=== PATIENT | male | born 1950 | race African-American/Black ===

== ENCOUNTER 2019-02-12 11:29 | Emergency (ER) | payer OTHER ==
[2019-02-12] MEDS ORDERED: Dexamethasone 10 MG/ML VIAL ONE (12:58)
[2019-02-12 13:06] LABS: #Basophils 0.1 thou/uL (0.0-0.2); #Eosinphils 0.4 thou/uL (0.0-0.7); #Lymphocytes 1.9 thou/uL (1.20-3.40); #Neutrophils 7.1 thou/uL (1.40-6.50); %Basophils 0.8 % (0.0-1.0); %Eosinophils 3.9 % (0.0-10.0); %Lymphocytes 18.1 % (21.0-51.0); %Monocytes 9.2 % (0.0-10.0); Hemoglobin 14.7 g/dL (14.0-18.0); Mean Corpuscular HGB CONC 33.5 g/dL (32.0-36.0); Mean Corpuscular Hemoglobin 30.4 pg (27.0-31.0); Mean Corpuscular Volume 90.8 fL (78.0-98.0); Mean Platelet Volume 6.6 fL (7.4-10.4); Platelet Count 424 thou/uL (130-400); RBC Distribution Width 14.1 % (11.5-14.5); Red Blood Cell (RBC) Count 4.82 mill/uL (4.70-6.10); White Blood Cell (WBC) Count 10.5 thou/uL (4.8-10.8)
[2019-02-12 13:24] LABS: Anion Gap 10 mmol/L (10-20); BUN (Urea Nitrogen) 8 mg/dL (8.4-25.7); Calc. Creatinine Clearance 0 mL/min (70-130); Calcium 9.5 mg/dL (7.8-10.44); Carbon Dioxide 27 mmol/L (23-31); Chloride 102 mmol/L (98-107); Estimated GFR-MDRD 68; Glucose 81 mg/dL (80-115); Sodium 135 mmol/L (136-145)
--- NOTE | 2019-02-12 13:32 | ULT ---
EXAM: Left lower extremity venous duplex ultrasound with color and spectral Doppler imaging: HISTORY: Left lower extremity edema COMPARISON: None FINDINGS: Exam performed from the groin to the ankle including the visualized greater saphenous, common femoral , superficial femoral, profunda femoral, popliteal, trifurcation, and posterior tibial veins. There is phasic flow with normal compressibility and normal augmentation at all examined levels. No evidence for intraluminal thrombus. IMPRESSION: No evidence for deep venous thrombosis.
== END 2019-02-12 13:45 | disposition home or self-care (01) ==
LOC: ERS 11:29
DX: L30.9 Dermatitis, unspecified (principal); R60.9 Edema, unspecified; F17.210 Nicotine dependence, cigarettes, uncomplicated; J45.909 Unspecified asthma, uncomplicated; I10 Essential (primary) hypertension; K50.90 Crohn's disease, unspecified, without complications; F41.9 Anxiety disorder, unspecified
CPT/HCPCS: 36415; 80048; 83880; 85025; 96372; J1100

== ENCOUNTER 2020-05-16 10:41 | Inpatient (IN) | payer MEDICARE ==
[2020-05-16 11:33] LABS: #Basophils 0.2 thou/uL (0.0-0.2); #Eosinphils 2.2 thou/uL (0.0-0.7); #Lymphocytes 3.4 thou/uL (1.20-3.40); #Monocytes 1.6 thou/uL (0.11-0.59); #Neutrophils 10.5 thou/uL (1.40-6.50); %Eosinophils 12.1 % (0.0-10.0); %Monocytes 8.8 % (0.0-10.0); %Neutrophils 59.1 % (42.0-75.0); Hemoglobin 12.5 g/dL (14.0-18.0); Mean Corpuscular HGB CONC 32.3 g/dL (32.0-36.0); Mean Platelet Volume 6.2 fL (7.4-10.4); Platelet Count 593 thou/uL (130-400); RBC Distribution Width 13.6 % (11.5-14.5); Red Blood Cell (RBC) Count 4.29 mill/uL (4.70-6.10); White Blood Cell (WBC) Count 17.8 thou/uL (4.8-10.8)
[2020-05-16] MEDS ORDERED: Cefepime 1 GM VIAL ONE ×2 (11:38→13:44)
--- NOTE | 2020-05-16 11:41 | RAD ---
LEFT FOOT 3 VIEWS: HISTORY: Left foot pain. FINDINGS: Small plantar spur from the calcaneus. The tarsals are otherwise unremarkable. Mild DJD at the 1st MTP joint. The metatarsals and MTP joins are otherwise unremarkable. IP joints and phalanges unremarkable. No lytic or destructive process. No fracture. IMPRESSION: No acute osseous abnormality. POS: AGW
[2020-05-16 11:54] LABS: ALT (SGPT) 11 U/L (8-55); AST (SGOT) 22 U/L (5-34); Albumin 2.3 g/dL (3.4-4.8); Alkaline Phosphatase 169 U/L (40-110); Anion Gap 14 mmol/L (10-20); BUN (Urea Nitrogen) 7 mg/dL (8.4-25.7); Bilirubin, Total 0.4 mg/dL (0.2-1.2); Calc. Creatinine Clearance 0 mL/min (70-130); Calcium 7.9 mg/dL (7.8-10.44); Carbon Dioxide 24 mmol/L (23-31); Chloride 105 mmol/L (98-107); Globulin 3.6 g/dL (2.4-3.5); Glucose 80 mg/dL (80-115); Potassium 3.8 mmol/L (3.5-5.1); Protein, Total 5.9 g/dL (5.8-8.1); Sodium 139 mmol/L (136-145)
--- NOTE | 2020-05-16 12:18 | ULT ---
RIGHT LOWER EXTREMITY VENOUS ULTRASOUND: COMPARISON: None. HISTORY: Lower extremity pain and edema. TECHNIQUE: Multiplanar, ventura scale, and color Doppler images were obtained in a right lower extremity venous ult rasound. Spectral Analysis of the Doppler waveforms was performed. FINDINGS: The right common femoral vein, profunda femoral vein, superficial femoral vein, and popliteal vein ar e normal in appearance without visible thrombus. These vessels demonstrate normal compression, flow, and augmentation. The posterior tibial vein and greater saphenous vein are also patent. IMPRESSION: No evidence of deep vein thrombosis. POS: [id number]
--- NOTE | 2020-05-16 12:21 | ULT ---
EXAM: US Arterial Doppler Lower Ext DATE: 05/16/2020 11:25 AM INDICATION: History of diabetes COMPARISON: None. FINDING: Doppler arterial evaluation of the left lower extremity demonstrates a biphasic waveform at the level of common femoral artery and monophasic waveform from the superficial femoral artery through the level of the dorsalis pedis artery. There is an antegrade monophasic waveform within the deep femoral artery IMPRESSION:Diffuse severe atherosclerotic disease of the arterial structures of the left lower extrem ity. No visible hemodynamically significant stenosis is demonstrated. There is antegrade monophasic waveforms from the level left superficial femoral artery through the level of the left dorsalis pedis artery.
[2020-05-16] MEDS ORDERED: Senokot S 8.6-50 MG TAB PO PRN (14:53)
[2020-05-16] MEDS ORDERED: Acetaminophen 325 MG TAB PO PRN (14:53)
[2020-05-16] MEDS: Nicotine 14 MG PATCH TD SCH (17:46)
[2020-05-16] MEDS: Piperacillin/Tazobactam 3.375 GM in Sodium Chloride 0.9% 100 ML IVPB SCH ×2 (17:46→22:40)
[2020-05-16] MEDS: Sodium Chloride 0.9% 1,000 ML IV SCH (17:46)
--- NOTE | 2020-05-16 20:51 | HP ---
REASON FOR ADMISSION: Left leg pain and ulcerations. HISTORY OF PRESENT ILLNESS: This is a very pleasant 69-year-old male gentleman, who usually follows up with the [place] for his medical needs with extensive past medical history of psoriasis, benign essential hypertension, and hyperlipidemia, presents to the emergency room today with complaints of left lower extremity pain of his toes, which seemed to be having wet gangrene at this point of time, though the patient's bilateral legs are warm. The patient does not have any fever. He is alert, oriented, and according to him, the current situation has been running for the last 4 to 5 months. He showed up at his primary care physician's office in [place], who advised him to have a Dermatology evaluation. The patient's current Dermatology evaluation is on June 18. Unfortunately could not wait for the same and presented to the ER as he was feeling weak in the recent past. The patient does have psoriasis, for which he has been taking adalimumab every 14 days. Except for complaints of sinus tachycardia and pain in his lower extremity. No other complaints of chest pain, shortness of breath, abdominal pain, fever, rigors, chills, nausea, vomiting, diaphoresis, blurring of vision, tingling, numbness, burning micturition, constipation, claudication, anxiety, depression, hematuria, hematochezia, cough, expectoration, syncope, seizures, PND, or orthopnea has been noted at this point of time. In the emergency room, the patient was found to have a heart rate of 120 with sinus tachycardia without any complaints of fever. The patient also was evaluated in the recent past for HIV and hepatitis, which were negative. SOCIAL HISTORY: The patient smokes a pack of cigarettes a day for the last 50 years. Does not abuse alcohol or recreational drugs. FAMILY HISTORY: Strong family history of coronary artery disease and hypertension without any premature onset problems. PAST SURGICAL HISTORY: History of punch biopsies for his psoriatic lesions. REVIEW OF SYSTEMS: Except as documented, all systems reviewed and negative. MEDICATIONS: At home; 1. Tylenol 325 mg q.8 hours. 2. Adalimumab 40 mg subcutaneous every 14 days. 3. Albuterol 90 mcg two puffs every 4 hours. 4. Aspirin 81 mg daily. 5. Atorvastatin 80 mg daily. 6. Budesonide inhalation 2 puffs twice daily. 7. Calcium 500 mg/vitamin D 200 units daily. 8. Clobetasol propionate 0.05% ointment for external application. 9. Cyanocobalamin 1000 mcg daily. 10. Folic acid 1 mg daily. 11. Latanoprost 0.005% ophthalmic solution daily. 12. Lisinopril 20 mg daily. 13. Loratadine 10 mg daily. 14. Sildenafil 100 mg one-half tablet daily. 15. Sulfasalazine 500 mg tablet three times for Crohn disease. 16. Terazosin 5 mg at bedtime. 17. Timolol 0.5% in the morning for glaucoma. PHYSICAL EXAMINATION: GENERAL: This is a 69-year-old gentleman, lying in his hospital bed, not in acute distress. VITAL SIGNS: With a heart rate of 120 per minute in sinus tachycardia, respiratory rate of 16 per minute, saturation of 98% on room air, and has a blood pressure of 148/68 mmHg. LUNGS: He has an airway, which is clear. HEENT: Atraumatic and normocephalic. NECK: Supple. No bruits. No lymphadenopathy. CVS: S1 and S2. No abnormal rhythms or murmurs. CHEST: Bilateral air entry present. No rhonchi. No wheeze. ABDOMEN: Soft and nontender. Bowel sounds are present. No organomegaly. EXTREMITIES: No cyanosis, thickness of skin with extensive psoriatic areas noted along with left lower extremity toe wet gangrene suspicion. HEME: No ecchymosis or petechiae. PSYCH: No depression. DIAGNOSTICS: WBC 17.8, hemoglobin 12.5, hematocrit 38.6, and platelets are 393. Sodium 139, potassium 3.8, chloride 105, carbon dioxide 24, BUN 7, creatinine 0.97, AST 22, ALT 11, albumin 2.3, and globulin 3.6. Blood culture sensitivities has been sent from the foot. Lower extremity ultrasound diffuse severe atherosclerotic disease of the arterial structures of the left lower extremity. No visible hemodynamically significant stenosis is demonstrated. There is antegrade monophasic waveforms from the level left superficial femoral artery through the level of the dorsalis pedis artery. Lower extremity vascular ultrasound, no evidence of DVT noted. Foot x-ray has been reviewed. Sodium 139, potassium 3.8, and creatinine 0.97. ASSESSMENT: 1. Suspected sepsis with tachycardia and elevated white blood cell count without any elevated lactic acid levels. The patient will be started on IV Zosyn at this point of time. 2. History of psoriasis for over 23 years. The patient currently on immunotherapy with adalimumab 40 mg every 14 days. 3. Chronic obstructive pulmonary disease. The patient uses albuterol as well as budesonide. 4. Hyperlipidemia on atorvastatin. 5. Glaucoma, for which the patient uses latanoprost. 6. Diabetes mellitus type 2 on metformin. 7. Benign essential hypertension on lisinopril. 8. History of Crohn disease on sulfasalazine. 9. Benign prostatic hypertrophy with history of terazosin intake. PLAN: Discussed in detail of the diagnosis, treatment, and followup with the patient. Advised the patient about surgical evaluation at this point of time, though I lately think this is just psoriasis with the suspicion for wet gangrene. I have advised the patient about quitting smoking, including providing interventions and nicotine patches. We will start the patient on IV Zosyn at this point of time, and discharge planning will depend on further hospital course and treat the patient to rule out sepsis at this point of time. We will follow blood culture sensitivities. Continue monitoring the patient's white blood cell count, though there is no left shift. Could be likelihood of dehydration. Advanced directives are DNR. Discharge planning will depend on further hospital course. Job ID: [id number]
[2020-05-17 03:33] LABS: SARS-CoV-2 MS2 Positive; SARS-CoV-2 N Gene Negative; SARS-CoV-2 S Gene Negative; SARS-CoV-2 by NAA Not Detected (NotDetected); SARS-CoV-2 orf1ab Negative
[2020-05-17] MEDS: Piperacillin/Tazobactam 3.375 GM in Sodium Chloride 0.9% 100 ML IVPB SCH ×4 (05:00→22:02)
[2020-05-17 05:27] LABS: ALT (SGPT) 15 U/L (8-55); AST (SGOT) 63 U/L (5-34); Alkaline Phosphatase 145 U/L (40-110); Anion Gap 12 mmol/L (10-20); BUN (Urea Nitrogen) 7 mg/dL (8.4-25.7); Bilirubin, Total 0.4 mg/dL (0.2-1.2); Calc. Creatinine Clearance 77 mL/min (70-130); Calcium 7.4 mg/dL (7.8-10.44); Carbon Dioxide 22 mmol/L (23-31); Chloride 107 mmol/L (98-107); Globulin 3.2 g/dL (2.4-3.5); Glucose 63 mg/dL (80-115); Potassium 3.6 mmol/L (3.5-5.1); Protein, Total 5.2 g/dL (5.8-8.1); Sodium 137 mmol/L (136-145)
[2020-05-17 06:19] LABS: Band 5 % (5-11); Eosinophils 7 % (0-10); Hemoglobin 11.9 g/dL (14.0-18.0); Lymphocytes 15 % (21-51); MDiff Complete? YES; Mean Corpuscular HGB CONC 32.7 g/dL (32.0-36.0); Mean Corpuscular Hemoglobin 28.9 pg (27.0-31.0); Mean Corpuscular Volume 88.5 fL (78.0-98.0); Mean Platelet Volume 6.2 fL (7.4-10.4); Monocytes 5 % (0-10); Neutrophil 68 % (42-75); Platelet Count 562 thou/uL (130-400); RBC Distribution Width 13.6 % (11.5-14.5); Red Blood Cell (RBC) Count 4.12 mill/uL (4.70-6.10); White Blood Cell (WBC) Count 16.3 thou/uL (4.8-10.8)
[2020-05-17] MEDS ORDERED: FLU VACC QS2020-21(65YR UP)/PF 240 MCG/0.7 ML SYRINGE IM ONE (09:00)
[2020-05-17] MEDS: Enoxaparin Sodium 40 MG/0.4 ML SYRINGE SC SCH (09:56)
[2020-05-17] MEDS: PROVENTIL INHALER 6.7 G (200 INHALATIONS) INH SCH ×4 (10:58→23:15)
[2020-05-17] MEDS ORDERED: Non-Formulary Item 1 EACH (Albuterol Sulfate [Proair Digihaler] 90 MCG Aer.Pw.Bas) INH SCH (13:00)
--- NOTE | 2020-05-17 13:02 | PDOC.HOSPP ---
- Subjective Encounter Date: 05/17/20 Encounter Time: 09:50 Subjective: Patient appears not in any acute distress however he has significant pain with his both legs being erythematic and left leg with ulceration. He states that his left leg discomfort is ongoing for the last 6 months. - Objective Vital Signs & Weight: Vital Signs (12 hours) Temp Pulse Resp BP Pulse Ox 05/17/20 12:01 98.6 F 111 H 19 124/57 L 96 05/17/20 10:58 112 H 16 98 05/17/20 08:10 97.5 F L 107 H 18 132/64 97 05/17/20 04:51 99.4 F 107 H 18 139/63 93 L Weight Weight 169 lb 4 oz I&O: 05/16/20 05/17/20 05/18/20 06:59 06:59 06:59 Intake Total 1300 Output Total 380 Balance 920 Result Diagrams: 05/17/20 04:41 05/17/20 04:41 Additional Labs: Accuchecks 05/17/20 05/17/20 11:06 06:03 POC Glucose 109 H 61 L Hospitalist ROS - Medication Medications: Active Medications Generic Name Dose Route Start Last Admin Trade Name Freq PRN Reason Stop Dose Admin Albuterol Sulfate 1 puff 05/17/20 10:30 05/17/20 10:58 Proventil Inhaler 6.7 G (200 Inhalations) INH 1 puff [id number] KIMMY Administration Enoxaparin Sodium 40 mg 05/17/20 09:00 05/17/20 09:56 Enoxaparin Sodium 40 Mg/0.4 Ml Syringe SC 40 mg 0900 KIMMY Administration Sodium Chloride 1,000 mls @ 50 mls/hr 05/16/20 15:00 05/16/20 17:46 Normal Saline 0.9% IV 1,000 mls .Q20H KIMMY Administration Piperacillin Sod/Tazobactam 100 mls @ 200 mls/hr 05/16/20 18:00 05/17/20 05:00 Sod 3.375 gm/ Sodium Chloride IVPB 100 mls Q6HR KIMMY Administration Nicotine 14 mg 05/16/20 15:00 05/16/20 17:46 Nicotine 14 Mg Patch TD Not Given Q24HR KIMMY - Exam General Appearance: NAD, awake alert Eye: PERRL ENT: normocephalic atraumatic Neck: supple Heart: RRR, normal peripheral pulses Respiratory: CTAB, normal chest expansion Gastrointestinal: soft, normal bowel sounds Neurological: cranial nerve grossly intact, no focal deficits Psychiatric: A&O x 3 Hosp A/P - Plan Left lower extremity ulcer and pain. Superimposed cellulitis cannot be ruled with underlying history of psoriasis. Ulceration and dry gangrene of the left fourth toes. -Arterial Doppler no significant stenosis. -Ultrasound Doppler negative for DVT. -General surgery consult pending Bacteremia -Gram stain of the foot - positive for staph aureus --with above findings I will also put him on vancomycin until we get a more clear picture. Follow-up with blood culture result. Leukocytosis trending down. -Continue with vancomycin and Zosyn. COPD stable currently. Covid negative. History of Crohn's disease and psoriasis. -Continue with sulfasalazine and -on adalimumab q. 14 days for psoriasis Hypertension continue with lisinopril DN AR.
[2020-05-17 14:13] VITALS: BMI 27.3
[2020-05-17] MEDS: Nicotine 14 MG PATCH TD SCH (14:58)
[2020-05-17] MEDS: Vancomycin 1 GM in Premix Bag 1 BAG IVPB SCH (14:58)
[2020-05-17] MEDS: sulfaSALAzine 500 MG TAB PO SCH ×2 (15:09→22:00)
[2020-05-17] MEDS ORDERED: diphenhydrAMINE 25 MG CAP PO PRN (15:09)
[2020-05-17] MEDS: Sodium Chloride 0.9% 1,000 ML IV SCH ×2 (17:20→21:59)
[2020-05-17] MEDS: Mometasone 200 MCG/Formoterol 5 MCG 120 PUFF INHALER INH SCH (19:39)
[2020-05-17] MEDS ORDERED: Terazosin HCl 1 MG CAP PO SCH (21:00)
[2020-05-17] MEDS ORDERED: Non-Formulary Item 1 EACH (Budesonide/Formoterol Fumarate [Budesonide-Formoterol 160-4.5] INH SCH (21:00)
[2020-05-17] MEDS ORDERED: Non-Formulary Item 1 EACH (Latanoprost/Pf [Latanoprost 0.005% Eye Drop] 7.5 ML Drops) OP SCH (21:00)
[2020-05-17] MEDS ORDERED: [UNRECOGNIZED DRUG - OTHER] PO SCH (21:00)
[2020-05-17] MEDS ORDERED: CALCIUM CARBONATE PO SCH (21:00)
[2020-05-17] MEDS ORDERED: Lisinopril 20 MG TAB PO SCH (21:00)
[2020-05-17] MEDS ORDERED: VITAMIN D3 PO SCH (21:00)
[2020-05-17] MEDS: Latanoprost 0.005% Ophth Soln 2.5 ml Bottle EA EYE SCH (22:00)
[2020-05-17] MEDS: Clobetasol 0.05% Cream 15 gm Tube TOP SCH (22:00)
[2020-05-17] MEDS: Calcium Carbonate 600 MG + Vit D TAB PO SCH (22:00)
[2020-05-17] MEDS: Lisinopril 10 MG TAB PO SCH (22:00)
[2020-05-17] MEDS: Terazosin HCl 5 MG CAP PO SCH (22:02)
[2020-05-18] MEDS: PROVENTIL INHALER 6.7 G (200 INHALATIONS) INH SCH ×6 (02:08→22:35)
[2020-05-18] MEDS: Piperacillin/Tazobactam 3.375 GM in Sodium Chloride 0.9% 100 ML IVPB SCH ×4 (03:07→21:46)
[2020-05-18] MEDS: Vancomycin 1 GM in Premix Bag 1 BAG IVPB SCH ×2 (03:07→14:51)
[2020-05-18] MEDS: Mometasone 200 MCG/Formoterol 5 MCG 120 PUFF INHALER INH SCH ×2 (07:41→18:49)
[2020-05-18] MEDS: metFORMIN 500 MG TAB PO SCH (08:49)
[2020-05-18] MEDS: sulfaSALAzine 500 MG TAB PO SCH ×3 (08:50→20:30)
[2020-05-18] MEDS: Loratadine 10 MG TAB PO SCH (08:50)
[2020-05-18] MEDS: Atorvastatin Calcium 40 MG TAB PO SCH (08:50)
[2020-05-18] MEDS: Folic Acid 1 MG TAB PO SCH (08:50)
[2020-05-18] MEDS: Lisinopril 10 MG TAB PO SCH (08:50)
[2020-05-18] MEDS: Aspirin 81 mg Enteric Coated Tablet PO SCH (08:50)
[2020-05-18] MEDS: Calcium Carbonate 600 MG + Vit D TAB PO SCH ×2 (08:50→20:30)
[2020-05-18] MEDS: Cyanocobalamin (Vitamin B-12) 1,000 MCG TAB PO SCH (08:50)
[2020-05-18] MEDS: Clobetasol 0.05% Cream 15 gm Tube TOP SCH ×2 (08:51→20:33)
[2020-05-18] MEDS: Timolol 0.5% Ophth Soln 5 ml Bottle EA EYE SCH (08:52)
[2020-05-18] MEDS ORDERED: Non-Formulary Item 1 EACH (Atorvastatin Calcium [Atorvastatin Calcium] 80 MG Tablet) PO SCH (09:00)
[2020-05-18] MEDS ORDERED: TIMOLOL MALEATE EA EYE SCH (09:00)
[2020-05-18] MEDS: Enoxaparin Sodium 40 MG/0.4 ML SYRINGE SC SCH (09:52)
--- NOTE | 2020-05-18 13:19 | PDOC.HOSPP ---
- Subjective Encounter Date: 05/18/20 Encounter Time: 12:10 Subjective: Patient seen this morning. He has no acute complaints I talked to Dr. Clark general surgery and updated his clinical condition. - Objective Vital Signs & Weight: Vital Signs (12 hours) Temp Pulse Resp BP BP Pulse Ox 05/18/20 09:01 97.9 F 93 18 131/68 98 05/18/20 08:52 87 131/68 05/18/20 08:50 131/68 05/18/20 08:00 93 L 05/18/20 03:09 98.3 F 87 18 111/68 05/18/20 02:08 101 H 16 98 Weight Admit Weight 168 lb 9.6 oz Weight 169 lb 4 oz I&O: 05/17/20 05/18/20 05/19/20 06:59 06:59 06:59 Intake Total 1300 1380 Output Total 380 Balance 920 1380 Result Diagrams: 05/17/20 04:41 05/17/20 04:41 Additional Labs: Accuchecks 05/18/20 05/18/20 05/17/20 11:25 04:35 19:55 POC Glucose 96 127 H 183 H 05/17/20 16:15 POC Glucose 122 H Hospitalist ROS - Medication Medications: Active Medications Generic Name Dose Route Start Last Admin Trade Name Charlieq PRN Reason Stop Dose Admin Albuterol Sulfate 1 puff 05/17/20 10:30 05/18/20 10:29 Proventil Inhaler 6.7 G (200 Inhalations) INH 1 puff [id number] KIMMY Administration Aspirin 81 mg 05/18/20 09:00 05/18/20 08:50 Aspirin 81 Mg Enteric Coated Tablet PO 81 mg DAILY KIMMY Administration Atorvastatin Calcium 40 mg 05/18/20 09:00 05/18/20 08:50 Atorvastatin Calcium 40 Mg Tab PO 40 mg DAILY KIMMY Administration Calcium/Vitamin D 1 tab 05/17/20 21:00 05/18/20 08:50 Calcium Carbonate 600 Mg + Vit D Tab PO 1 tab BID KIMMY Administration Clobetasol Propionate 0 gm 05/17/20 21:00 05/18/20 08:51 Clobetasol 0.05% Cream 15 Gm Tube TOP 1 applic BID KIMMY Administration Cyanocobalamin 1,000 mcg 05/18/20 09:00 05/18/20 08:50 Cyanocobalamin (Vitamin B-12) 1,000 Mcg Tab PO 1,000 mcg DAILY KIMMY Administration Enoxaparin Sodium 40 mg 05/17/20 09:00 05/18/20 09:52 Enoxaparin Sodium 40 Mg/0.4 Ml Syringe SC 40 mg 0900 KIMMY Administration Folic Acid 1 mg 05/18/20 09:00 05/18/20 08:50 Folic Acid 1 Mg Tab PO 1 mg DAILY KIMMY Administration Sodium Chloride 1,000 mls @ 50 mls/hr 05/16/20 15:00 05/17/20 21:59 Normal Saline 0.9% IV 1,000 mls .Q20H KIMMY Administration Vancomycin HCl 1 gm/ Device 200 mls @ 200 mls/hr 05/17/20 14:00 05/18/20 03:07 IVPB 200 mls 0200,1400 KIMMY Administration Piperacillin Sod/Tazobactam 100 mls @ 200 mls/hr 05/17/20 16:00 05/18/20 09:52 Sod 3.375 gm/ Sodium Chloride IVPB 100 mls 0400,1000,1600,2200 KIMMY Administration Latanoprost 1 drop 05/17/20 21:00 05/17/20 22:00 Latanoprost 0.005% Ophth Soln 2.5 Ml Bottle EA EYE 1 drop HS KIMMY Administration Lisinopril 10 mg 05/17/20 21:00 05/18/20 08:50 Lisinopril 10 Mg Tab PO 10 mg BID KIMMY Administration Loratadine 10 mg 05/18/20 09:00 05/18/20 08:50 Loratadine 10 Mg Tab PO 10 mg DAILY KIMMY Administration Metformin HCl 750 mg 05/18/20 09:00 05/18/20 08:49 Metformin 500 Mg Tab PO 750 mg DAILY KIMMY Administration Mometasone Furoate/Formoterol Fumar 2 puff 05/17/20 18:30 05/18/20 07:41 Mometasone 200 Mcg/Formoterol 5 Mcg 120 Puff Inhaler INH 2 puff BID-RT KIMMY Administration Nicotine 14 mg 05/16/20 15:00 05/17/20 14:58 Nicotine 14 Mg Patch TD 14 mg Q24HR KIMMY Administration Sodium Chloride 10 ml 05/17/20 21:00 05/18/20 08:51 Flush - Normal Saline 10 Ml Syringe IVF Not Given Q12HR KIMMY Sulfasalazine 500 mg 05/17/20 15:00 05/18/20 08:50 Sulfasalazine 500 Mg Tab PO 500 mg TID KIMMY Administration Terazosin HCl 5 mg 05/17/20 21:00 05/17/20 22:02 Terazosin Hcl 5 Mg Cap PO 5 mg HS KIMMY Administration Timolol Maleate 1 drop 05/18/20 09:00 05/18/20 08:52 Timolol 0.5% Ophth Soln 5 Ml Bottle EA EYE 1 drop DAILY KIMMY Administration Triamcinolone Acetonide 0 gm 05/17/20 21:00 05/18/20 09:53 Triamcinolone 0.1% Oint 15 Gm Tube TOP 1 applic BID KIMMY Administration - Exam General Appearance: NAD, awake alert Eye: PERRL ENT: normocephalic atraumatic Neck: supple Heart: RRR Respiratory: CTAB, normal chest expansion Gastrointestinal: soft, normal bowel sounds Extremities: 1+ LE edema Extremities - other findings: Inflammation left foot toes possible dry gangrene Skin - other findings: Lower extremity edema Neurological: cranial nerve grossly intact, no focal deficits Musculoskeletal: generalized weakness Psychiatric: A&O x 3 Hosp A/P - Plan Left lower extremity ulcer and pain. Superimposed cellulitis cannot be ruled with underlying history of psoriasis. Ulceration and dry gangrene of the left fourth toes. Sensation inflammation versus infection--will get the inflammatory markers for follow-up. -Continue with vancomycin Zosyn until more clinical picture evolves. Follow the Vanco trough. -Arterial Doppler no significant stenosis. -Ultrasound Doppler negative for DVT. -General surgery consult pending Bacteremia -Gram stain of the foot - positive for staph aureus --with above findings I will also put him on vancomycin until we get a more clear picture. Follow-up with blood culture result. Leukocytosis trending down. -Continue with vancomycin and Zosyn. COPD stable currently. Covid negative. History of Crohn's disease and psoriasis. -Continue with sulfasalazine and -on adalimumab q. 14 days for psoriasis Hypertension continue with lisinopril Continue with wound care -Follow with the general surgery input Physical therapy consult placed. SARAH COMBS.
[2020-05-18 14:21] LABS: Vancomycin, Trough 14.5 ug/mL
[2020-05-18] MEDS: Nicotine 14 MG PATCH TD SCH (14:52)
--- NOTE | 2020-05-18 18:22 | CON ---
DATE OF CONSULTATION: 05/18/2020 REQUESTING PHYSICIAN: Dr. Clark. CHIEF COMPLAINT: Left foot pain. HISTORY OF PRESENT ILLNESS: The patient is a 69-year-old man, who apparently has been followed as an outpatient in the [place] system for quite sometime for wounds affecting his lower extremities. The patient carries a diagnosis of psoriasis that apparently has been confirmed by biopsies, but for the last several months, he has been complaining of pain in his left foot, primarily affecting the toes. He has been set up for an outpatient Dermatology evaluation, but had been feeling rather weak and opted to come to the emergency room instead. He was afebrile in the emergency room and has remained so in the hospital, but two different blood cultures have grown Staphylococcus aureus that by nucleic acid testing is consistent with a methicillin-susceptible Staphylococcal aureus. He has been on Zosyn and vancomycin. His initial white count is 17.8, came down a bit to 16.3 the next morning. PAST MEDICAL HISTORY: Significant for hypertension, hyperlipidemia, and psoriasis. HOME MEDICATIONS: 1. Tylenol. 2. Adalimumab 40 mg subcutaneously every 14 days. 3. Albuterol. 4. Baby aspirin. 5. Lipitor 80 mg a day. 6. Budesonide 2 puffs twice a day. 7. Calcium and vitamin D supplements. 8. Clobetasol propionate ointment. 9. Lisinopril 20 mg a day. 10. Sildenafil 50 mg a day. 11. Sulfasalazine 500 mg t.i.d. "for Crohn disease.". 12. Terazosin 5 mg at bedtime. 13. Atenolol. 14. Latanoprost eyedrops. ALLERGIES: HE REPORTS AN ALLERGY TO PENICILLINS. SOCIAL HISTORY: He smokes about a pack of cigarettes a day. FAMILY HISTORY: Significant for coronary artery disease, hypertension. REVIEW OF SYSTEMS: Negative for any chest pain, fever or chills on exam, the patient has very dark complected black man with scaling covering essentially his entire body. His lower legs are particularly dark and have a few desquamated areas with underlying pink tissues. He has been afebrile throughout his hospitalization. PHYSICAL EXAMINATION: VITAL SIGNS: His current temperature is 97.9, heart rate is 93, blood pressure 131/68. LUNGS: He has clear breath sounds. HEART: Regular rate and rhythm. EXTREMITIES: He has palpable femoral pulses, although the left one perhaps somewhat diminished. He does not have palpable popliteal or pedal pulses. He is very difficult to assess for capillary refill on the right foot, even though there is some light pink quality to the tips of the toes. On the right side, I am not able to find any Doppler pulses in the foot. There are dry gangrenous changes affecting all the toes, particularly the great toe. Doppler signals in the right foot are reasonably good in the dorsalis pedis and posterior tibial positions. LABORATORY EXAMINATION: Hemoglobin is 11.9, platelets 560,000. His blood sugar was 80. Potassium 3.9, BUN 7, creatinine 0.97. No evidence of DVT of the right leg. His left lower extremity arterial Doppler is atherosclerotic plaquing. Waveforms at common femoral level are monophasic in the profunda and from the SFA on down to the dorsalis pedis. IMPRESSION AND RECOMMENDATIONS: Obvious peripheral vascular disease with dry gangrenous changes evolving the left toes. The initial impression that I got the discoloration of his lower extremities was that of venous stasis disease, but his underlying dermatologic issues really make it difficult to assess the integrity of his scan. He has desquamated skin throughout his bed linens. He says this is not a normal situation for him. He has even scaling on his scalp. He clearly has a left limb at risk and I have recommended conventional arteriography to define his anatomy. I would be rather reluctant to pursue any conventional surgical bypass that involves synthetic graft material, but based on physical exam and ultrasonographic findings, it may be a straightforward as femoral endarterectomy using autologous vein for patch material. Balloon angioplasties may prove to be an option. I have discussed this with him and we will set this up for tomorrow. Job ID: [id number]
[2020-05-18] MEDS: Terazosin HCl 5 MG CAP PO SCH (20:30)
[2020-05-18] MEDS: Latanoprost 0.005% Ophth Soln 2.5 ml Bottle EA EYE SCH (20:31)
[2020-05-19] MEDS: PROVENTIL INHALER 6.7 G (200 INHALATIONS) INH SCH ×5 (02:24→20:11)
[2020-05-19] MEDS: Vancomycin HCl 1.25 GM in Sodium Chloride 0.9% 250 ML 250 ML IVPB SCH ×2 (03:13→15:17)
[2020-05-19] MEDS: Piperacillin/Tazobactam 3.375 GM in Sodium Chloride 0.9% 100 ML IVPB SCH ×4 (03:13→20:43)
[2020-05-19] MEDS: Sodium Chloride 0.9% 1,000 ML IV SCH (03:14)
--- NOTE | 2020-05-19 05:03 | CON ---
DATE OF CONSULTATION: REASON FOR CONSULTATION: Left foot gangrene. HISTORY OF PRESENT ILLNESS: Mr. White is a 69-year-old man with a history of hypertension, hyperlipidemia, and severe psoriasis. He has had pain in his feet for the past six months, worse on the left than the right. Most of his care has been at the [facility], so we do not have much in the way of records on what has been going on for the past six months. He states that he has just been washing his feet with water and not or taking any antibiotics. He cannot tell me if he has had any vascular imaging or interventions done, but it does not appear that he has. He is a long-time smoker with a 50 pack-year history and ongoing tobacco abuse, but does not use other drugs. He denies any past medical history of MT, heart failure, or seizures, but he is a very vague historian and cannot give many details and tends to agree with what is suggested. He has been admitted a few times in the past to our hospital and had an echocardiogram back in January, which showed ejection fraction of 60% to 65%, structurally normal valves and normal heart size. Recent EKGs have shown sinus tachycardia with occasional PACs. He denies any dyspnea on exertion or chest pain with exertion, but he has not been able to walk much due to the pain in his legs. He states that he can walk from room to room, but not much farther. PAST MEDICAL HISTORY: Hypertension, hyperlipidemia, severe psoriasis, and Crohn disease. PAST SURGICAL HISTORY: Biopsies for his psoriasis. FAMILY HISTORY: Heart disease, hypertension. REVIEW OF SYSTEMS: Ten-system review of systems is negative except per HPI and chronic skin issues related to his psoriasis. OUTPATIENT MEDICATIONS: Include; 1. Adalimumab for his psoriasis. 2. Sulfasalazine for his Crohn's. He also takes 1. Albuterol. 2. Aspirin. 3. Atorvastatin. 4. Budesonide inhaler. 5. Calcium with vitamin D. 6. Clobetasol externally. 7. Cyanocobalamin. 8. Folate. 9. Latanoprost ophthalmic solution. 10. Lisinopril. 11. Loratadine. 12. Sildenafil. 13. Terazosin. 14. Timolol drops. INPATIENT MEDICATIONS: Include; 1. Albuterol. 2. Aspirin. 3. Atorvastatin. 4. Calcium with vitamin D. 5. Clobetasol cream. 6. Cyanocobalamin. 7. Subcu Lovenox. 8. Folate. 9. Latanoprost ophthalmic solution. 10. Lisinopril. 11. Loratadine. 12. Metformin. 13. Dulera inhaler. 14. Nicotine patch. 15. Zosyn. 16. Sulfasalazine. 17. Terazosin. 18. Timolol ophthalmic solution. 19. Triamcinolone ointment. 20. Vancomycin. ALLERGIES: HE REPORTS AN ADVERSE DRUG REACTION TO PENICILLINS. PHYSICAL EXAMINATION: VITAL SIGNS: The patient has been afebrile since his admission. Heart rate 93, respirations 18, 98% saturated on room air, and blood pressure 131/68. GENERAL: Reveals a pleasant elderly gentleman, in no acute distress. He is not flushed or toxic in appearance. He is not jaundiced or icteric. HEENT: Unremarkable. NECK: Supple without lymphadenopathy or thyroid nodules. HEART: Regular in its rate and rhythm without murmurs, rubs, or gallops. LUNGS: Clear to auscultation bilaterally. ABDOMEN: Soft, nontender, and nondistended. EXTREMITIES: He has palpable femoral pulses bilaterally, but no popliteal or pedal pulses are palpable. His left toes are cool to the touch, although his forefoot is fairly warm. There is no swelling in the toes. He has multiple areas of gangrene involving multiple toes on the left and a couple of shallow ulcerations on the right foot, but no gangrene. There are some open fissures in the left foot as well. Some of them abutting the areas of gangrene and multiple shallow ulcerations of the left leg including a large one over the plantar surface of his foot. However, the underlying dermis appears viable. The medial great toe and distal and plantar 4th and 5th toes are gangrenous. However, there is no swelling, purulence, or expressible drainage from the nearby tissues. No brown gangrene of the 2nd or 3rd toe, but they are very cool to the touch and tender. He also has some shallow ulcerations of both heels and over the sacral area. NEUROLOGIC: No focal deficits. Very vague historian and unable to give many details of his recent medical care, but alert and oriented to self and place. LABORATORY DATA: White count is elevated at 16,000 yesterday, hematocrit of 36, and platelets of 562. Blood sugars have ranged from 61 to 183. BUN and creatinine are normal at 7 and 0.97. AST is mildly elevated at 63, and alkaline phosphatase is elevated at 145. Albumin is low at 2. Other electrolytes are unremarkable. Venous Doppler was negative for DVT bilaterally. There are no acute osseous abnormalities seen on plain film of the left foot. A lower extremity arterial ultrasound of the left leg, however, showed diffuse severe atherosclerotic disease of the left lower extremity with no single significant stenosis demonstrated. He had only monophasic waveforms from the level of the left SFA down. ASSESSMENT: Gangrene with severe peripheral vascular disease with additional skin issues related to psoriasis. I do not believe that he is septic from his feet. He does have some weeping from the tissues adjacent to the gangrenous areas, but there is no bogginess, purulence, or odor. He is on appropriate antibiotics, but requires vascular evaluation before considering any surgical intervention for his gangrene. At this point, he would not heal the toe amputations and I doubt he would heal mid foot amputation. With a palpable femoral pulse, he does have about a 75% chance of healing of the left below-knee amputation, but the patient would obviously prefer to avoid that. He currently states that he is living alone and takes care of himself and manages his own affairs and ambulates in the house, but his functional status is poor and I do not know that he would be able to return to independent living with the prosthesis. I have consulted Dr. Lopez of Cardiovascular Surgery to assess the patient. He was eating breakfast when I came into his room to see him, so I doubt that any interventions will be performed today. I will await cardiovascular evaluation and follow the patient with the wound care team. Job ID: [id number]
[2020-05-19] MEDS ORDERED: Midazolam HCl 2 mg/2 ml Vial ONE (07:41)
[2020-05-19] MEDS ORDERED: Fentanyl 100 MCG/2 ML VIAL ONE ×2 (07:41→08:03)
[2020-05-19] MEDS ORDERED: Heparin 10,000 UNITS/ 10 ML VIAL ONE (07:41)
[2020-05-19] MEDS: Mometasone 200 MCG/Formoterol 5 MCG 120 PUFF INHALER INH SCH ×2 (08:22→20:11)
--- NOTE | 2020-05-19 08:47 | PDOC.GSPN ---
Surgery Progress Note: Subj - Subjective Narrative: Patient getting angio today. Will await results. Surgery Progress Note: Obj - Vital signs Vital signs: Vital Signs - Most Recent Temp Pulse Resp BP Pulse Ox 97.9 F 95 18 159/70 H 98 05/19/20 07:20 05/19/20 07:20 12 07:20 05/19/20 07:20 05/19/20 07:20 Surgery Progress Note: Results - Labs Result Diagrams: 05/17/20 04:41 05/17/20 04:41 Lab results: Laboratory Results - last 12 hr 05/19/20 06:38 POC Glucose 75
[2020-05-19] MEDS: Enoxaparin Sodium 40 MG/0.4 ML SYRINGE SC SCH (09:00)
[2020-05-19] MEDS: Aspirin 81 mg Enteric Coated Tablet PO SCH (09:00)
[2020-05-19] MEDS ORDERED: hydrALAZINE 20 MG/ML VIAL ONE (09:00)
[2020-05-19] MEDS ORDERED: Protamine Sulfate 50 MG/5 ML VIAL ONE (09:04)
[2020-05-19] MEDS ORDERED: Clopidogrel Bisulfate 300 MG TAB ONE (09:04)
[2020-05-19] MEDS ORDERED: Iopamidol 370 76% 50 ML VIAL FS ONE (11:37)
--- NOTE | 2020-05-19 12:30 | OP ---
DATE OF PROCEDURE: 05/19/2020 PROCEDURES PERFORMED: Ultrasonographically-guided right femoral artery access with inferior aortography with bilateral iliofemoral runoff. Selective left lower extremity aortography with distal positioning of the angiogram catheter in the superficial femoral artery. Balloon angioplasty of mid superficial femoral artery stenosis first with 4 x 40 [employer] [place] balloon followed by a 6 x 80 Bard Lutonix drug-coated balloon and completion aortography. PREOPERATIVE DIAGNOSIS: Peripheral vascular disease with ischemic tissue loss, left lower extremity. POSTOPERATIVE DIAGNOSIS: Peripheral vascular disease with ischemic tissue loss, left lower extremity. ANESTHESIA: 1% lidocaine local anesthesia with intravenous sedation consisting of a total of 2 mg of Versed and 150 mcg of fentanyl. FINDINGS: Focal ostial stenosis of the left profunda femoris seen on oblique views. There were scattered calcifications and mild luminal irregularities in the superficial femoral artery, but a very short focal stenosis in the mid to distal SFA on the order of 95%, two-vessel runoff through large peroneal, and posterior tibial arteries. The peroneal artery appeared to collateralize through a small vessel to the anterior tibial just above the foot. There was a good angiographic result following angioplasty and post procedure, the patient had a good Doppler signal in the peroneal and an excellent Doppler signal in the posterior tibial in the foot. Doppler signals in the dorsalis pedis could not be identified. Total fluoroscopy time was 20.7 minutes and total contrast used was 52 mL. DESCRIPTION OF PROCEDURE: After informed consent was obtained, the patient was positioned in the supine position on the cardiac cath table. His groins were prepped and draped in sterile fashion and an appropriate time-out was performed. The patient was given initial dose of sedation consisting of 1 mg of Versed and 50 mcg of fentanyl. During the course of the procedure, the patient had incremental additional doses of sedation titrating to effect totaling 2 mg of Versed and 150 mcg of fentanyl. The right femoral pulse was palpated and then ultrasonographically interrogated. The femoral vein and femoral artery were identified. The bifurcation at the distal common femoral was identified. Proximal to that the overlying skin and subcutaneous tissue were infiltrated with lidocaine and a micropuncture needle was used under ultrasonographic guidance. In spite of appearing to enter the femoral artery, no blood return was achieved and ultimately the blood return achieved proved to be venous. When the guidewire passed through the needle and sheath were clearly to the right of the vertebral column rather than stopping to hold pressure. At that point, it was opted to replace the micropuncture sheath with 4-Australian sheath, which aspirated and was flushed and then returned our attention to cannulating the femoral artery. Again, several attempts with ultrasonographic appearance of entering the common femoral artery were undertaken before bright red pulsatile return was achieved. The micropuncture guidewire passed easily. Sheath was passed over it and then the fine wire was exchanged for a Bentson wire, which clearly passed into the aorta. The micropuncture sheath was exchanged for 5-Australian sheath and then a Contra catheter was passed over the wire into the distal aorta. There was sufficient overlying bowel gas and resistance to injection through the 4-Australian catheter that opacification of the distal aorta and the iliofemoral segments was inadequate. The Contra catheter was exchanged for a rim catheter that was larger and this allowed for adequate opacification of the aorta and iliofemoral system to not only identify landmarks, but did demonstrate that there was no apparent inflow disease on AP projection. The Bentson wire was reinserted and guided down into the left iliofemoral system. A brief attempt at advancing the Rim catheter was made, but there was enough resistance to passage that I did not try to take it more than 1 cm or 2 into the common iliac. A soft angled catheter was used and easily passed with minimal manipulation of the wire and catheter necessary to go beyond the iliac bifurcation and positioned a catheter in the distal external iliac or proximal common femoral. Additional injections of dye were made that included obliques that demonstrated the ostial stenosis in the profunda that had been suggested on a Vascular Doppler study. Additional runoff pictures were taken that demonstrated a discrete very high-grade stenosis in the SFA in the mid thigh. There is some luminal irregularity in the SFA and popliteal beyond that and there was a fairly prominent profunda collateral a little distal to that stenosis. The anterior tibial was small and did not opacify well much beyond its most proximal portion. The tibioperoneal trunk was intact, and the profunda and posterior tibial were reasonably large vessels with smooth contour that passed into the foot. The anterior tibial could not be seen reconstituting in the lower leg, but there did appear to be a peroneal collateral just above the ankle that crossed over into the distal anterior tibial or posterior or a dorsalis pedis at about the level of the ankle joint. In preparation for balloon dilatation of the discrete SFA lesion, the soft angled catheter was withdrawn over a stiff wire and the existing 5-Australian sheath was exchanged for a long 6-Australian sheath that under fluoroscopic guidance was advanced over the horn of the aortic bifurcation down into the left iliofemoral system. The guidewire was advanced down to the level of the distal popliteal artery below the knee and a 4 x 40 [employer] [place] balloon was advanced through that sheath using the radiographic markers as a reference guide. The balloon was inflated to its nominal maximum of 8 atmospheres and held for 20 or 30 seconds, deflated, and then advanced slightly and reinflated. After deflating that balloon, it was exchanged for a 6 x 80 Bard Lutonix drug-coated balloon. It was positioned using the radiographic markers for reference and then inflated to its nominal maximum 7 atmosphere and held inflated at that level for 3 minutes. Upon deflation, a completion arteriogram was done, which showed a good angiographic result. The balloon was deflated and removed and soft catheter was used for the completion arteriogram. A [employer]oph[employer] wire was placed through that catheter, and then the catheter and sheath were removed, retaining the wire and holding pressure while a ProGlide closure device was passed over the wire. The ProGlide seemed to pass easily, but the blood returned through the side port was problematic and ultimately was opted to abandon device closure of the artery and the wire and the device were removed and pressure held after several minutes. The venous sheath was removed and pressure held there, and after hemostasis at both puncture sites appeared adequate, a Doppler exam of the foot was undertaken, which failed to demonstrate a Doppler signal in the dorsalis pedis, but there was a quite strong signal in the posterior tibial and a good signal in the peroneal as well. The patient's puncture sites were dressed and he was taken to the recovery area in stable condition. Job ID: [id number]
[2020-05-19] MEDS: sulfaSALAzine 500 MG TAB PO SCH ×3 (13:00→20:44)
[2020-05-19] MEDS: Loratadine 10 MG TAB PO SCH (13:00)
[2020-05-19] MEDS: Cyanocobalamin (Vitamin B-12) 1,000 MCG TAB PO SCH (13:00)
[2020-05-19] MEDS: Atorvastatin Calcium 40 MG TAB PO SCH (13:00)
[2020-05-19] MEDS: Furosemide 20 MG TAB PO SCH (13:01)
[2020-05-19] MEDS: Folic Acid 1 MG TAB PO SCH (13:01)
[2020-05-19] MEDS: Calcium Carbonate 600 MG + Vit D TAB PO SCH ×2 (13:01→20:44)
[2020-05-19] MEDS: Lisinopril 10 MG TAB PO SCH (13:01)
[2020-05-19] MEDS: Clobetasol 0.05% Cream 15 gm Tube TOP SCH ×2 (13:01→20:45)
[2020-05-19] MEDS: Timolol 0.5% Ophth Soln 5 ml Bottle EA EYE SCH (13:02)
[2020-05-19] MEDS: metFORMIN 500 MG TAB PO SCH (13:21)
[2020-05-19] MEDS: Nicotine 14 MG PATCH TD SCH (15:31)
--- NOTE | 2020-05-19 17:21 | PDOC.HOSPP ---
- Subjective Encounter Date: 05/19/20 Subjective: Seen and examined this morning at bedside. At time of my assessment he is having breakfast s/p angio. Denies any overnight events or acute complains. Denies any fever, chills, malaise. - Objective Vital Signs & Weight: Vital Signs (12 hours) Temp Pulse Resp BP BP Pulse Ox 05/19/20 16:00 97.8 F 106 H 18 151/78 H 99 05/19/20 13:06 98.9 F 109 H 20 154/77 H 99 05/19/20 13:02 95 154/77 H 05/19/20 13:01 154/77 H 05/19/20 07:20 97.9 F 95 18 159/70 H 98 05/19/20 07:10 98 05/19/20 06:42 97.7 F 93 18 154/76 H 98 Weight Admit Weight 168 lb 9.6 oz Weight 169 lb 4 oz I&O: 05/18/20 05/19/20 05/20/20 06:59 06:59 06:59 Intake Total 1380 1700 Balance 1380 1700 Result Diagrams: 05/17/20 04:41 05/17/20 04:41 Additional Labs: Accuchecks 05/19/20 05/19/20 05/18/20 12:27 06:38 19:52 POC Glucose 115 H 75 105 H 05/16/20 21:48 POC Glucose 70 Hospitalist ROS - Review of Systems Constitutional: denies: fever, chills, sweats, weakness, malaise, other Respiratory: denies: cough, dry, shortness of breath, hemoptysis, SOB with excertion, pleuritic pain, sputum, wheezing, other Cardiovascular: denies: chest pain, palpitations, orthopnea, paroxysmal noc. dyspnea, edema, light headedness, other Gastrointestinal: denies: nausea, vomiting, abdominal pain, diarrhea, constipation, melena, hematochezia, other Musculoskeletal: reports: other (Lower extremity edema +1, left foot toes with possible dry gangrene) - Medication Medications: Active Medications Generic Name Dose Route Start Last Admin Trade Name Freq PRN Reason Stop Dose Admin Albuterol Sulfate 1 puff 05/17/20 10:30 05/19/20 13:54 Proventil Inhaler 6.7 G (200 Inhalations) INH 1 puff [id number] KIMMY Administration Aspirin 81 mg 05/18/20 09:00 05/19/20 09:00 Aspirin 81 Mg Enteric Coated Tablet PO Not Given DAILY KIMMY Atorvastatin Calcium 40 mg 05/18/20 09:00 05/19/20 13:00 Atorvastatin Calcium 40 Mg Tab PO 40 mg DAILY KIMMY Administration Calcium/Vitamin D 1 tab 05/17/20 21:00 05/19/20 13:01 Calcium Carbonate 600 Mg + Vit D Tab PO 1 tab BID KIMMY Administration Clobetasol Propionate 0 gm 05/17/20 21:00 05/19/20 13:01 Clobetasol 0.05% Cream 15 Gm Tube TOP 1 applic BID KMIMY Administration Cyanocobalamin 1,000 mcg 05/18/20 09:00 05/19/20 13:00 Cyanocobalamin (Vitamin B-12) 1,000 Mcg Tab PO 1,000 mcg DAILY KIMMY Administration Enoxaparin Sodium 40 mg 05/17/20 09:00 05/19/20 09:00 Enoxaparin Sodium 40 Mg/0.4 Ml Syringe SC Not Given 0900 KIMMY Folic Acid 1 mg 05/18/20 09:00 05/19/20 13:01 Folic Acid 1 Mg Tab PO 1 mg DAILY KIMMY Administration Furosemide 20 mg 05/19/20 09:00 05/19/20 13:01 Furosemide 20 Mg Tab PO 20 mg DAILY KIMMY Administration Sodium Chloride 1,000 mls @ 50 mls/hr 05/16/20 15:00 05/19/20 03:14 Normal Saline 0.9% IV 1,000 mls .Q20H KIMMY Administration Vancomycin HCl 1.25 gm/ Sodium 250 mls @ 166.667 mls/hr 05/19/20 03:00 05/19/20 15:17 Chloride IVPB 250 mls 0300,1500 KIMMY Administration Latanoprost 1 drop 05/17/20 21:00 05/18/20 20:31 Latanoprost 0.005% Ophth Soln 2.5 Ml Bottle EA EYE 1 drop HS KIMMY Administration Lisinopril 10 mg 05/19/20 09:00 05/19/20 13:01 Lisinopril 10 Mg Tab PO 10 mg DAILY KIMMY Administration Loratadine 10 mg 05/18/20 09:00 12/07/20 13:00 Loratadine 10 Mg Tab PO 10 mg DAILY KIMMY Administration Mometasone Furoate/Formoterol Fumar 2 puff 05/17/20 18:30 05/19/20 08:22 Mometasone 200 Mcg/Formoterol 5 Mcg 120 Puff Inhaler INH Not Given BID-RT KIMMY Nicotine 14 mg 05/16/20 15:00 05/19/20 15:31 Nicotine 14 Mg Patch TD 14 mg Q24HR KIMMY Administration Sodium Chloride 10 ml 05/17/20 21:00 05/19/20 13:02 Flush - Normal Saline 10 Ml Syringe IVF Not Given Q12HR KIMMY Sulfasalazine 500 mg 05/17/20 15:00 05/19/20 15:06 Sulfasalazine 500 Mg Tab PO Not Given TID KIMMY Terazosin HCl 5 mg 05/17/20 21:00 05/18/20 20:30 Terazosin Hcl 5 Mg Cap PO 5 mg HS KIMMY Administration Timolol Maleate 1 drop 05/18/20 09:00 05/19/20 13:02 Timolol 0.5% Ophth Soln 5 Ml Bottle EA EYE 1 drop DAILY KIMMY Administration - Exam General Appearance: NAD, awake alert Eye: PERRL ENT: normocephalic atraumatic Neck: supple, no JVD Heart: RRR, no murmur Respiratory: CTAB, no wheezes, no rales Gastrointestinal: soft, non-tender, non-distended, normal bowel sounds Extremities: 1+ LE edema Extremities - other findings: Left foot toes with evidence of dry gangrene Skin - other findings: Dry skin Hosp A/P - Plan old records reviewed/req A/P: Patient being observed and treated for left lower extremity ulcer and possible dry gangrene with suspected PVD/PAD s/p angiogram. # Left lower extremity ulcer and pain: Awaiting angio to assess PVD/PAD. Continue with current antibiotic regimen Vanc + Zosyn. Continue with pain control. Surgery & vascular team follow. # Bacteremia: Staph species. Non septic/toxic appearing. Will continue with above antibiotic regimen. Pending surgical recommendation will consider ID consultation. # COPD: No evidence of acute exacerbation. Continue to monitor under current regimen. # HTN: Continue with lisinopril. DISPOSITION: Being treated with broad spec antibiotics. Awaiting angio to further clarify surgical plan. PT/OT/CM involved.
[2020-05-19] MEDS: Triamcinolone 0.1% Cream 15 GM TUBE TOP SCH (20:45)
[2020-05-19] MEDS: Terazosin HCl 5 MG CAP PO SCH (20:45)
[2020-05-19 20:54] LABS: #Basophils 0.1 thou/uL (0.0-0.2); #Monocytes 1.3 thou/uL (0.11-0.59); #Neutrophils 9.5 thou/uL (1.40-6.50); %Basophils 0.9 % (0.0-1.0); %Lymphocytes 17.6 % (21.0-51.0); %Monocytes 7.4 % (0.0-10.0); %Neutrophils 56.1 % (42.0-75.0); Hemoglobin 12.8 g/dL (14.0-18.0); Mean Corpuscular HGB CONC 32.7 g/dL (32.0-36.0); Mean Corpuscular Hemoglobin 28.9 pg (27.0-31.0); Mean Corpuscular Volume 88.4 fL (78.0-98.0); Mean Platelet Volume 6.4 fL (7.4-10.4); Platelet Count 624 thou/uL (130-400); RBC Distribution Width 13.7 % (11.5-14.5); Red Blood Cell (RBC) Count 4.43 mill/uL (4.70-6.10); White Blood Cell (WBC) Count 16.9 thou/uL (4.8-10.8)
[2020-05-19] MEDS: Latanoprost 0.005% Ophth Soln 2.5 ml Bottle EA EYE SCH (21:21)
[2020-05-19 21:47] LABS: Anion Gap 13 mmol/L (10-20); BUN (Urea Nitrogen) 10 mg/dL (8.4-25.7); Calc. Creatinine Clearance 89 mL/min (70-130); Calcium 7.9 mg/dL (7.8-10.44); Carbon Dioxide 24 mmol/L (23-31); Chloride 106 mmol/L (98-107); Glucose 111 mg/dL (80-115); Potassium 3.8 mmol/L (3.5-5.1); Sodium 139 mmol/L (136-145)
[2020-05-20] MEDS: PROVENTIL INHALER 6.7 G (200 INHALATIONS) INH SCH ×6 (00:04→19:51)
[2020-05-20] MEDS: Piperacillin/Tazobactam 3.375 GM in Sodium Chloride 0.9% 100 ML IVPB SCH ×4 (02:31→22:38)
[2020-05-20] MEDS: Vancomycin HCl 1.25 GM in Sodium Chloride 0.9% 250 ML 250 ML IVPB SCH ×2 (02:31→15:36)
[2020-05-20] MEDS: Loratadine 10 MG TAB PO SCH (08:14)
[2020-05-20] MEDS: sulfaSALAzine 500 MG TAB PO SCH ×3 (08:14→22:38)
[2020-05-20] MEDS: Sodium Chloride 0.9% 1,000 ML IV SCH (08:14)
[2020-05-20] MEDS: Enoxaparin Sodium 40 MG/0.4 ML SYRINGE SC SCH (08:14)
[2020-05-20] MEDS: Calcium Carbonate 600 MG + Vit D TAB PO SCH ×2 (08:14→22:38)
[2020-05-20] MEDS: Aspirin 81 mg Enteric Coated Tablet PO SCH (08:14)
[2020-05-20] MEDS: Clopidogrel Bisulfate 75 MG TAB PO SCH (08:14)
[2020-05-20] MEDS: Folic Acid 1 MG TAB PO SCH (08:15)
[2020-05-20] MEDS: Atorvastatin Calcium 40 MG TAB PO SCH (08:15)
[2020-05-20] MEDS: Cyanocobalamin (Vitamin B-12) 1,000 MCG TAB PO SCH (08:15)
[2020-05-20] MEDS: Furosemide 20 MG TAB PO SCH (08:15)
[2020-05-20] MEDS: Clobetasol 0.05% Cream 15 gm Tube TOP SCH ×2 (08:17→22:40)
[2020-05-20] MEDS: Lisinopril 10 MG TAB PO SCH (08:20)
[2020-05-20] MEDS: Mometasone 200 MCG/Formoterol 5 MCG 120 PUFF INHALER INH SCH ×2 (08:23→19:53)
[2020-05-20] MEDS: Triamcinolone 0.1% Cream 15 GM TUBE TOP SCH ×2 (08:35→22:42)
[2020-05-20] MEDS: Timolol 0.5% Ophth Soln 5 ml Bottle EA EYE SCH (08:35)
--- NOTE | 2020-05-20 15:00 | PDOC.GSPN ---
Surgery Progress Note: Subj - Subjective Narrative: Patient had a angiogram and angioplasty of his left SFA yesterday with improvement of the blood flow. He still does not have palpable pulses but he does have improved Doppler signals in his foot. With anglican of blood flow to the leg the swelling in his leg has gotten worse. There is some increased weeping from the skin and from the areas of ulceration from his psoriasis. Still no expressible drainage from around his gangrenous toes but it is boggier. Cultures from the toes and blood cultures are both showing staph aureus. I cannot rule out deep infection in the foot. He has gangrenous changes to all the toes except for the middle toe. Assessment/plan: Gangrene with possible superinfection, with cultures from toe and blood cultures all showing staph aureus. He has undergone angioplasty for severe peripheral vascular disease and hopefully has enough blood flow to heal amputations at this point. I have recommended a transmetatarsal amputation since 4 of his 5 toes show gangrenous changes. If there is infection at the level of the mid metatarsal or if the tissues do not appear to have adequate blood flow to heal then I would recommend below-knee amputation. The patient and his family member understand and are in agreement with the recommendation. I have posted him for the OR tomorrow. He is tentatively on for around 9:30 AM but this is during another surgeons blocktime so if not surgeon post additional cases then I will need to add him to the add-on list and his case would likely be in the late afternoon or evening. I will make him n.p.o. after midnight. If he has to be moved to the add-on list we will let him have clear liquids for breakfast and lunch and n.p.o. after noon. Surgery Progress Note: Obj - Vital signs Vital signs: Vital Signs - Most Recent Temp Pulse Resp BP Pulse Ox 97.8 F 102 H 18 177/72 H 97 05/20/20 12:00 05/20/20 12:00 05/20/20 12:00 05/20/20 12:00 05/20/20 12:00 Surgery Progress Note: Results - Labs Result Diagrams: 05/19/20 20:11 05/19/20 20:11 Lab results: Laboratory Results - last 12 hr 12/07/20 12/08/20 16:17 04:29 POC Glucose 139 H 137 H
[2020-05-20 15:30] LABS: Vancomycin, Trough 19.3 ug/mL
[2020-05-20] MEDS: Nicotine 14 MG PATCH TD SCH (15:36)
--- NOTE | 2020-05-20 17:13 | PDOC.HOSPP ---
- Subjective Encounter Date: 05/20/20 Subjective: Seen and examined this morning at bedside. He remains rather asymptomatic without significant pain, no fever or chills. He does not appear septic/toxic. He did undergo angiogram and angioplastly of his left SFA. Per surgery he appears to have improved pulses. Per surgery plan for transmetatarsal amputation on 05-21-20. He remains on broad spectrum antibiotics which we will maintain for now including Vanc and Zosyn until surgery is performed. Tissue and blood cultures growing MSSA. - Objective Vital Signs & Weight: Vital Signs (12 hours) Temp Pulse Resp BP BP Pulse Ox 05/20/20 16:00 98.7 F 101 H 18 156/73 H 98 05/20/20 12:00 97.8 F 102 H 18 177/72 H 97 05/20/20 08:00 98.8 F 95 18 107/60 96 Weight Admit Weight 168 lb 9.6 oz Weight 169 lb 4 oz I&O: 05/19/20 05/20/20 05/21/20 06:59 06:59 06:59 Intake Total 1700 3600 Output Total 2050 Balance 1700 1550 Result Diagrams: 05/19/20 20:11 05/19/20 20:11 Additional Labs: Accuchecks 05/20/20 05/19/20 05/19/20 04:29 19:26 16:17 POC Glucose 137 H 88 139 H Radiology Reviewed by me: Yes Hospitalist ROS - Review of Systems Constitutional: denies: fever, chills, sweats, weakness, malaise, other Respiratory: denies: cough, dry, shortness of breath, hemoptysis, SOB with excertion, pleuritic pain, sputum, wheezing, other Cardiovascular: denies: chest pain, palpitations, orthopnea, paroxysmal noc. dyspnea, edema, light headedness, other Gastrointestinal: denies: nausea, vomiting, abdominal pain, diarrhea, constipation, melena, hematochezia, other Musculoskeletal: reports: other (Left foot changes suggestive of grangrene, awaiting amputation) Neurological: denies: weakness, numbness, incoordination, change in speech, confusion, seizures, other - Medication Medications: Active Medications Generic Name Dose Route Start Last Admin Trade Name Freq PRN Reason Stop Dose Admin Albuterol Sulfate 1 puff 05/17/20 10:30 05/20/20 15:09 Proventil Inhaler 6.7 G (200 Inhalations) INH 1 puff [id number] KIMMY Administration Aspirin 81 mg 05/18/20 09:00 05/20/20 08:14 Aspirin 81 Mg Enteric Coated Tablet PO 81 mg DAILY KIMMY Administration Atorvastatin Calcium 40 mg 05/18/20 09:00 05/20/20 08:15 Atorvastatin Calcium 40 Mg Tab PO 40 mg DAILY KIMMY Administration Calcium/Vitamin D 1 tab 05/17/20 21:00 05/20/20 08:14 Calcium Carbonate 600 Mg + Vit D Tab PO 1 tab BID KIMMY Administration Clobetasol Propionate 0 gm 05/17/20 21:00 05/20/20 08:17 Clobetasol 0.05% Cream 15 Gm Tube TOP 1 applic BID KIMMY Administration Clopidogrel Bisulfate 75 mg 05/20/20 09:00 05/20/20 08:14 Clopidogrel Bisulfate 75 Mg Tab PO 75 mg DAILY KIMMY Administration Cyanocobalamin 1,000 mcg 05/18/20 09:00 05/20/20 08:15 Cyanocobalamin (Vitamin B-12) 1,000 Mcg Tab PO 1,000 mcg DAILY KIMMY Administration Enoxaparin Sodium 40 mg 05/17/20 09:00 05/20/20 08:14 Enoxaparin Sodium 40 Mg/0.4 Ml Syringe SC 40 mg 0900 KIMMY Administration Folic Acid 1 mg 05/18/20 09:00 05/20/20 08:15 Folic Acid 1 Mg Tab PO 1 mg DAILY KIMMY Administration Furosemide 20 mg 05/19/20 09:00 05/20/20 08:15 Furosemide 20 Mg Tab PO 20 mg DAILY KIMMY Administration Sodium Chloride 1,000 mls @ 50 mls/hr 05/16/20 15:00 05/20/20 08:14 Normal Saline 0.9% IV 1,000 mls .Q20H KIMMY Administration Vancomycin HCl 1.25 gm/ Sodium 250 mls @ 166.667 mls/hr 05/19/20 03:00 05/20/20 15:36 Chloride IVPB 250 mls 0300,1500 KIMMY Administration Piperacillin Sod/Tazobactam 100 mls @ 200 mls/hr 05/19/20 20:00 05/20/20 13:29 Sod 3.375 gm/ Sodium Chloride IVPB 100 mls 0200,0800,1400,2000 KIMMY Administration Latanoprost 1 drop 05/17/20 21:00 05/19/20 21:21 Latanoprost 0.005% Ophth Soln 2.5 Ml Bottle EA EYE 1 drop HS KIMMY Administration Lisinopril 10 mg 05/19/20 09:00 05/20/20 08:20 Lisinopril 10 Mg Tab PO 10 mg DAILY KIMMY Administration Loratadine 10 mg 05/18/20 09:00 05/20/20 08:14 Loratadine 10 Mg Tab PO 10 mg DAILY KIMMY Administration Mometasone Furoate/Formoterol Fumar 2 puff 05/17/20 18:30 05/20/20 08:23 Mometasone 200 Mcg/Formoterol 5 Mcg 120 Puff Inhaler INH 2 puff BID-RT KIMMY Administration Nicotine 14 mg 05/16/20 15:00 05/20/20 15:36 Nicotine 14 Mg Patch TD 14 mg Q24HR KIMMY Administration Sodium Chloride 10 ml 05/17/20 21:00 05/20/20 08:18 Flush - Normal Saline 10 Ml Syringe IVF 10 ml Q12HR KIMMY Administration Sulfasalazine 500 mg 05/17/20 15:00 05/20/20 15:36 Sulfasalazine 500 Mg Tab PO 500 mg TID KIMMY Administration Terazosin HCl 5 mg 05/17/20 21:00 05/19/20 20:45 Terazosin Hcl 5 Mg Cap PO 5 mg HS KIMMY Administration Timolol Maleate 1 drop 05/18/20 09:00 05/20/20 08:35 Timolol 0.5% Ophth Soln 5 Ml Bottle EA EYE 1 drop DAILY KIMMY Administration Triamcinolone Acetonide 0 gm 05/19/20 21:00 05/20/20 08:35 Triamcinolone 0.1% Cream 15 Gm Tube TOP 1 applic BID KIMMY Administration - Exam General Appearance: NAD, awake alert Heart: RRR, no murmur, no gallops, no rubs, diminshed peripheral pulses (PVD/PAD s/p angioplastly of left SFA) Respiratory: CTAB, no wheezes, no rales, no ronchi, normal chest expansion, no tachypnea, normal percussion Gastrointestinal: soft, non-tender, non-distended, normal bowel sounds, no palpable masses, no hepatomegaly, no splenomegaly, no bruit Extremities: 1+ LE edema Extremities - other findings: Grangrene to several toes of left foot Skin - other findings: Psoriatic rash Neurological: cranial nerve grossly intact, normal sensation to touch, no weakness, no focal deficits, no new deficit Psychiatric: normal affect, normal behavior, A&O x 3 Hosp A/P - Plan A/P: Patient being observed and treated for left lower extremity ulcer and possible dry gangrene with suspected PVD/PAD s/p angiogram. # PAD with left foot gangrene: Angio confirms PVD/PAD now s/p angioplasty to left SFA. Pulses appeared improved per surgical evaluation. Surgery planning for mid transmetatarsal amputation. Initial tissue and blood cultures growing MSSA. Repeat blood cultures are negative. Continue with current antibiotic regimen Vanc + Zosyn until after surgery. Continue with pain control. Surgery & vascular team follow. # Bacteremia: MSSA. Repeat blood cultures remain negative. Non septic/toxic appearing. Continue with current antibiotic regimen until after surgery. Pending on results of surgery will plan to modify/descalate antibiotic regimen. Pending surgical interenvetion will consider ID consultation. # COPD: No evidence of acute exacerbation. Continue to monitor under current regimen. # HTN: Continue with lisinopril. DISPOSITION: Being treated with broad spec antibiotics. Awaiting possible amputation per on 05-21-20 as stated above.
[2020-05-20] MEDS: Terazosin HCl 5 MG CAP PO SCH (22:38)
[2020-05-20] MEDS: Latanoprost 0.005% Ophth Soln 2.5 ml Bottle EA EYE SCH (22:41)
[2020-05-21] MEDS: Piperacillin/Tazobactam 3.375 GM in Sodium Chloride 0.9% 100 ML IVPB SCH ×4 (02:50→23:18)
[2020-05-21] MEDS: PROVENTIL INHALER 6.7 G (200 INHALATIONS) INH SCH ×7 (03:25→21:53)
[2020-05-21] MEDS: Vancomycin HCl 1.25 GM in Sodium Chloride 0.9% 250 ML 250 ML IVPB SCH ×2 (03:55→15:45)
[2020-05-21] MEDS: Sodium Chloride 0.9% 1,000 ML IV SCH (06:10)
[2020-05-21 06:52] LABS: #Basophils 0.1 thou/uL (0.0-0.2); #Eosinphils 2.3 thou/uL (0.0-0.7); #Lymphocytes 2.7 thou/uL (1.20-3.40); #Monocytes 1.2 thou/uL (0.11-0.59); #Neutrophils 6.6 thou/uL (1.40-6.50); %Basophils 0.7 % (0.0-1.0); %Eosinophils 17.6 % (0.0-10.0); %Lymphocytes 20.8 % (21.0-51.0); %Monocytes 9.7 % (0.0-10.0); %Neutrophils 51.3 % (42.0-75.0); Hemoglobin 11.2 g/dL (14.0-18.0); Mean Corpuscular HGB CONC 32.4 g/dL (32.0-36.0); Mean Corpuscular Volume 89.5 fL (78.0-98.0); Mean Platelet Volume 6.4 fL (7.4-10.4); Platelet Count 616 thou/uL (130-400); RBC Distribution Width 13.4 % (11.5-14.5); Red Blood Cell (RBC) Count 3.86 mill/uL (4.70-6.10); White Blood Cell (WBC) Count 12.8 thou/uL (4.8-10.8)
[2020-05-21 07:24] LABS: Anion Gap 10 mmol/L (10-20); BUN (Urea Nitrogen) 9 mg/dL (8.4-25.7); Calc. Creatinine Clearance 97 mL/min (70-130); Calcium 7.6 mg/dL (7.8-10.44); Carbon Dioxide 26 mmol/L (23-31); Chloride 105 mmol/L (98-107); Glucose 73 mg/dL (80-115); Potassium 3.3 mmol/L (3.5-5.1); Sodium 138 mmol/L (136-145)
[2020-05-21] MEDS: Mometasone 200 MCG/Formoterol 5 MCG 120 PUFF INHALER INH SCH ×2 (07:27→19:38)
[2020-05-21] MEDS: Clobetasol 0.05% Cream 15 gm Tube TOP SCH ×2 (08:01→23:18)
[2020-05-21] MEDS: Aspirin 81 mg Enteric Coated Tablet PO SCH (08:01)
[2020-05-21] MEDS: Clopidogrel Bisulfate 75 MG TAB PO SCH (08:01)
[2020-05-21] MEDS: Calcium Carbonate 600 MG + Vit D TAB PO SCH ×2 (08:01→23:17)
[2020-05-21] MEDS: sulfaSALAzine 500 MG TAB PO SCH ×4 (08:02→23:17)
[2020-05-21] MEDS: Enoxaparin Sodium 40 MG/0.4 ML SYRINGE SC SCH (08:02)
[2020-05-21] MEDS: Triamcinolone 0.1% Cream 15 GM TUBE TOP SCH ×2 (08:02→23:19)
[2020-05-21] MEDS: Lisinopril 10 MG TAB PO SCH (08:02)
[2020-05-21] MEDS: Loratadine 10 MG TAB PO SCH (08:02)
[2020-05-21] MEDS: Atorvastatin Calcium 40 MG TAB PO SCH (08:02)
[2020-05-21] MEDS: Folic Acid 1 MG TAB PO SCH (08:03)
[2020-05-21] MEDS: Cyanocobalamin (Vitamin B-12) 1,000 MCG TAB PO SCH (08:03)
[2020-05-21] MEDS: Timolol 0.5% Ophth Soln 5 ml Bottle EA EYE SCH (08:03)
[2020-05-21] MEDS: Furosemide 20 MG TAB PO SCH (08:03)
[2020-05-21] MEDS ORDERED: Potassium Chloride 20 MEQ TAB PO SCH (08:45)
[2020-05-21] MEDS ORDERED: ePHEDrine 50 MG/ML VIAL ONE (09:34)
[2020-05-21] MEDS ORDERED: Lidocaine 1% PF 5 ML VIAL ONE (09:34)
[2020-05-21] MEDS ORDERED: PHENYLEPHRINE-NS 100 MCG/ML 10 ML SYRINGE ONE (09:34)
[2020-05-21] MEDS ORDERED: Ketorolac Tromethamine 30 MG/ML VIAL ONE (09:34)
[2020-05-21] MEDS ORDERED: Ondansetron PF 4 MG/2 ML Vial ONE (09:34)
[2020-05-21] MEDS ORDERED: PROPOFOL 200 MG/20 ML VIAL ONE (09:34)
[2020-05-21] MEDS ORDERED: Bacitracin Zinc Ointment 30 gm TUBE ONE (10:32)
[2020-05-21] MEDS ORDERED: Fentanyl 100 MCG/2 ML VIAL ONE ×3 (10:42→12:08)
[2020-05-21] MEDS ORDERED: HYDROmorphone 2 MG/ML VIAL SLOW IVP PRN (11:44)
[2020-05-21] MEDS ORDERED: Ondansetron HCl/PF 4 MG/2 ML Vial IVP PRN (11:44)
[2020-05-21] MEDS ORDERED: Morphine Sulfate 2 MG/ML SYRINGE SLOW IVP PRN (11:44)
[2020-05-21] MEDS ORDERED: PACU-Morphine 4MG/ML VIAL SLOW IVP PRN (11:44)
[2020-05-21] MEDS ORDERED: Promethazine HCl 25 MG/ML VIAL SLOW IVP PRN (11:44)
[2020-05-21] MEDS ORDERED: Promethazine HCl 25 MG/ML VIAL IM PRN (11:44)
[2020-05-21] MEDS: Nicotine 14 MG PATCH TD SCH (14:45)
--- NOTE | 2020-05-21 17:24 | PDOC.HOSPP ---
- Subjective Encounter Date: 05/21/20 Subjective: Seen and examined at bedside. He remains rather asymptomatic without si gnificant pain, no fever or chills. He does not appear septic/toxic. He did undergo angiogram and angioplastly of his left SFA now s/p mid transmetatarsal amputation. He remains on broad spectrum antibiotics which will be descalated likely to short course of oral antibiotics now that he underwent amputation; will await final surgical report. Tissue and blood cultures initially growing MSSA with repeat cultures negative. - Objective Vital Signs & Weight: Vital Signs (12 hours) Temp Pulse Resp BP BP Pulse Ox 05/21/20 13:20 96 F L 86 18 168/83 H 98 05/21/20 07:54 97.4 F L 97 20 150/78 H 100 Weight Admit Weight 168 lb 9.6 oz Weight 169 lb 4 oz I&O: 05/20/20 05/21/20 05/22/20 06:59 06:59 06:59 Intake Total 3600 1950 Output Total 2050 200 0 Balance 1550 1750 0 Result Diagrams: 05/21/20 06:12 05/21/20 06:12 Hospitalist ROS - Review of Systems Constitutional: denies: fever, chills, sweats, weakness, malaise, other Respiratory: denies: cough, dry, shortness of breath, hemoptysis, SOB with excertion, pleuritic pain, sputum, wheezing, other Cardiovascular: denies: chest pain, palpitations, orthopnea, paroxysmal noc. dyspnea, edema, light headedness, other Gastrointestinal: denies: nausea, vomiting, abdominal pain, diarrhea, constipation, melena, hematochezia, other Musculoskeletal: reports: other (Per subjective narrative.) - Medication Medications: Active Medications Generic Name Dose Route Start Last Admin Trade Name Freq PRN Reason Stop Dose Admin Albuterol Sulfate 1 puff 05/17/20 10:30 05/21/20 14:23 Proventil Inhaler 6.7 G (200 Inhalations) INH 1 puff [id number] KIMMY Administration Aspirin 81 mg 05/18/20 09:00 05/21/20 08:01 Aspirin 81 Mg Enteric Coated Tablet PO Not Given DAILY KIMMY Atorvastatin Calcium 40 mg 05/18/20 09:00 05/21/20 08:02 Atorvastatin Calcium 40 Mg Tab PO 40 mg DAILY KIMMY Administration Calcium/Vitamin D 1 tab 05/17/20 21:00 05/21/20 08:01 Calcium Carbonate 600 Mg + Vit D Tab PO Not Given BID [facility] Clobetasol Propionate 0 gm 05/17/20 21:00 05/21/20 08:01 Clobetasol 0.05% Cream 15 Gm Tube TOP Not Given BID KIMMY Clopidogrel Bisulfate 75 mg 05/20/20 09:00 05/21/20 08:01 Clopidogrel Bisulfate 75 Mg Tab PO Not Given DAILY KIMMY Cyanocobalamin 1,000 mcg 05/18/20 09:00 05/21/20 08:03 Cyanocobalamin (Vitamin B-12) 1,000 Mcg Tab PO 1,000 mcg DAILY KIMMY Administration Enoxaparin Sodium 40 mg 05/17/20 09:00 05/21/20 08:02 Enoxaparin Sodium 40 Mg/0.4 Ml Syringe SC Not Given 0900 KIMMY Folic Acid 1 mg 05/18/20 09:00 05/21/20 08:03 Folic Acid 1 Mg Tab PO 1 mg DAILY KIMMY Administration Furosemide 20 mg 05/19/20 09:00 05/21/20 08:03 Furosemide 20 Mg Tab PO 20 mg DAILY KIMMY Administration Sodium Chloride 1,000 mls @ 50 mls/hr 05/16/20 15:00 05/21/20 06:10 Normal Saline 0.9% IV Not Given .Q20H KIMMY Vancomycin HCl 1.25 gm/ Sodium 250 mls @ 166.667 mls/hr 05/19/20 03:00 05/21/20 03:55 Chloride IVPB 250 mls 0300,1500 KIMMY Administration Piperacillin Sod/Tazobactam 100 mls @ 200 mls/hr 05/19/20 20:00 05/21/20 08:01 Sod 3.375 gm/ Sodium Chloride IVPB 100 mls 0200,0800,1400,2000 KIMMY Administration Latanoprost 1 drop 05/17/20 21:00 05/20/20 22:41 Latanoprost 0.005% Ophth Soln 2.5 Ml Bottle EA EYE 1 drop HS KIMMY Administration Lisinopril 10 mg 05/19/20 09:00 05/21/20 08:02 Lisinopril 10 Mg Tab PO 10 mg DAILY KIMMY Administration Loratadine 10 mg 05/18/20 09:00 05/21/20 08:02 Loratadine 10 Mg Tab PO 10 mg DAILY KIMMY Administration Mometasone Furoate/Formoterol Fumar 2 puff 05/17/20 18:30 05/21/20 07:27 Mometasone 200 Mcg/Formoterol 5 Mcg 120 Puff Inhaler INH 2 puff BID-RT KIMMY Administration Nicotine 14 mg 05/16/20 15:00 05/20/20 15:36 Nicotine 14 Mg Patch TD 14 mg Q24HR KIMMY Administration Sodium Chloride 10 ml 05/17/20 21:00 05/21/20 08:02 Flush - Normal Saline 10 Ml Syringe IVF Not Given Q12HR KIMMY Sulfasalazine 500 mg 05/17/20 15:00 05/21/20 08:12 Sulfasalazine 500 Mg Tab PO 500 mg TID KIMMY Administration Terazosin HCl 5 mg 05/17/20 21:00 05/20/20 22:38 Terazosin Hcl 5 Mg Cap PO 5 mg HS KIMMY Administration Timolol Maleate 1 drop 05/18/20 09:00 05/21/20 08:03 Timolol 0.5% Ophth Soln 5 Ml Bottle EA EYE 1 drop DAILY KIMMY Administration Triamcinolone Acetonide 0 gm 05/19/20 21:00 05/21/20 08:02 Triamcinolone 0.1% Cream 15 Gm Tube TOP Not Given BID KIMMY - Exam General Appearance: NAD, awake alert Heart: RRR, no murmur, no gallops, no rubs, normal peripheral pulses Respiratory: CTAB, no wheezes, no rales, no ronchi, normal chest expansion, no tachypnea, normal percussion Gastrointestinal: soft, non-tender, non-distended, normal bowel sounds, no palpable masses, no hepatomegaly, no splenomegaly, no bruit Extremities - other findings: S/p left foot transmetatarsal amputation, surgical dressing appears clean Hosp A/P - Plan A/P: Patient being observed and treated for left lower extremity ulcer and possible dry gangrene with suspected PVD/PAD s/p angiogram. # PAD with left foot gangrene: Angio confirms PVD/PAD now s/p angioplasty to left SFA. He is now s/p mid transmetatarsal amputation. Initial tissue and blood cultures growing MSSA. Repeat blood cultures are negative. Continue with current antibiotic regimen Vanc + Zosyn; awaiting final surgical report. Continue with pain control. Surgery & vascular team follow. # Bacteremia: MSSA. Repeat blood cultures remain negative. Non septic/toxic appearing. Continue with current antibiotic regimen Vanc + Zosyn; awaiting final surgical report. Will plan to modify/descalate antibiotic regimen likely short course of PO ABX now that he is s/p amputation with negative cultures and afebrile. # COPD: No evidence of acute exacerbation. Continue to monitor under current regimen. # HTN: Continue with lisinopril. DISPOSITION: Being treated with broad spec antibiotics. S/p transmetatarsal amputation on 05-21-20.
[2020-05-21] MEDS: Terazosin HCl 5 MG CAP PO SCH (23:17)
[2020-05-21] MEDS: Latanoprost 0.005% Ophth Soln 2.5 ml Bottle EA EYE SCH (23:18)
[2020-05-22] MEDS: Piperacillin/Tazobactam 3.375 GM in Sodium Chloride 0.9% 100 ML IVPB SCH ×2 (01:25→09:45)
[2020-05-22] MEDS: Sodium Chloride 0.9% 1,000 ML IV SCH (01:27)
[2020-05-22] MEDS: HYDROcodone/Acetaminophen 5/325 mg Tablet PO PRN ×2 (01:30→11:23)
[2020-05-22] MEDS: PROVENTIL INHALER 6.7 G (200 INHALATIONS) INH SCH ×6 (02:08→21:50)
[2020-05-22] MEDS: Vancomycin HCl 1.25 GM in Sodium Chloride 0.9% 250 ML 250 ML IVPB SCH (03:55)
[2020-05-22 06:39] LABS: #Basophils 0.1 thou/uL (0.0-0.2); #Eosinphils 2.7 thou/uL (0.0-0.7); #Lymphocytes 2.5 thou/uL (1.20-3.40); #Neutrophils 8.6 thou/uL (1.40-6.50); %Basophils 0.7 % (0.0-1.0); %Eosinophils 18.3 % (0.0-10.0); %Lymphocytes 16.5 % (21.0-51.0); %Monocytes 6.7 % (0.0-10.0); %Neutrophils 57.7 % (42.0-75.0); Hemoglobin 10.8 g/dL (14.0-18.0); Mean Corpuscular HGB CONC 32.8 g/dL (32.0-36.0); Mean Corpuscular Hemoglobin 29.2 pg (27.0-31.0); Mean Corpuscular Volume 89.2 fL (78.0-98.0); Mean Platelet Volume 6.4 fL (7.4-10.4); Platelet Count 631 thou/uL (130-400); RBC Distribution Width 13.5 % (11.5-14.5); Red Blood Cell (RBC) Count 3.71 mill/uL (4.70-6.10); White Blood Cell (WBC) Count 14.9 thou/uL (4.8-10.8)
[2020-05-22 07:01] LABS: Anion Gap 8 mmol/L (10-20); BUN (Urea Nitrogen) 8 mg/dL (8.4-25.7); Calc. Creatinine Clearance 81 mL/min (70-130); Calcium 7.3 mg/dL (7.8-10.44); Carbon Dioxide 26 mmol/L (23-31); Chloride 107 mmol/L (98-107); Glucose 157 mg/dL (80-115); Potassium 3.3 mmol/L (3.5-5.1); Sodium 138 mmol/L (136-145)
--- NOTE | 2020-05-22 08:23 | PDOC.HOSPP ---
- Subjective Encounter Date: 05/22/20 Subjective: Seen and examined at bedside. Denies overnight events. Denies any pain at site of amputation. No fever chills malaise. IV ABX have been discontinued. Started on short course of PO doxycycline in setting of poor healing capacity due to PVD/PAD. His repeat blood cultures remain negative without any reported fever. Awaiting final surgical recommendations. Case discussed with CM to start discharge disposition including wound care/ wound vac. Patient wishes to go home with services. - Objective Vital Signs & Weight: Vital Signs (12 hours) Temp Pulse Resp BP BP Pulse Ox 05/22/20 07:14 97.4 F L 89 20 133/73 100 05/22/20 00:00 97.6 F 96 18 125/83 100 05/21/20 21:53 87 12 98 Weight Admit Weight 168 lb 9.6 oz Weight 169 lb 4 oz I&O: 05/21/20 05/22/20 05/23/20 06:59 06:59 06:59 Intake Total 1950 1650 Output Total 200 0 Balance 1750 1650 Result Diagrams: 05/22/20 05:59 05/22/20 05:59 Hospitalist ROS - Review of Systems Constitutional: denies: fever, chills, sweats, weakness, malaise, other Respiratory: denies: cough, dry, shortness of breath, hemoptysis, SOB with excertion, pleuritic pain, sputum, wheezing, other Cardiovascular: denies: chest pain, palpitations, orthopnea, paroxysmal noc. dyspnea, edema, light headedness, other Gastrointestinal: denies: nausea, vomiting, abdominal pain, diarrhea, constipation, melena, hematochezia, other Musculoskeletal: reports: other (Amputation area with dressing and wound vac in place, no evidence of cellulitis, reports no pain or other issues) - Medication Medications: Active Medications Generic Name Dose Route Start Last Admin Trade Name Freq PRN Reason Stop Dose Admin Hydrocodone Bitart/Acetaminophen 1 tab 05/16/20 14:53 05/22/20 01:30 Hydrocodone/Acetaminophen 5/325 Mg Tablet PO 1 tab Q4H PRN Administration Moderate Pain (4-6) Albuterol Sulfate 1 puff 05/17/20 10:30 05/22/20 02:08 Proventil Inhaler 6.7 G (200 Inhalations) INH 1 puff [id number] KIMMY Administration Aspirin 81 mg 05/18/20 09:00 05/21/20 08:01 Aspirin 81 Mg Enteric Coated Tablet PO Not Given DAILY [facility] Atorvastatin Calcium 40 mg 05/18/20 09:00 05/21/20 08:02 Atorvastatin Calcium 40 Mg Tab PO 40 mg DAILY KIMMY Administration Calcium/Vitamin D 1 tab 05/17/20 21:00 05/21/20 23:17 Calcium Carbonate 600 Mg + Vit D Tab PO 1 tab BID KIMMY Administration Clobetasol Propionate 0 gm 05/17/20 21:00 05/21/20 23:18 Clobetasol 0.05% Cream 15 Gm Tube TOP 1 applic BID KIMMY Administration Clopidogrel Bisulfate 75 mg 05/20/20 09:00 05/21/20 08:01 Clopidogrel Bisulfate 75 Mg Tab PO Not Given DAILY [facility] Cyanocobalamin 1,000 mcg 05/18/20 09:00 05/21/20 08:03 Cyanocobalamin (Vitamin B-12) 1,000 Mcg Tab PO 1,000 mcg DAILY KIMMY Administration Enoxaparin Sodium 40 mg 05/17/20 09:00 05/21/20 08:02 Enoxaparin Sodium 40 Mg/0.4 Ml Syringe SC Not Given 0900 [facility] Folic Acid 1 mg 05/18/20 09:00 05/21/20 08:03 Folic Acid 1 Mg Tab PO 1 mg DAILY KIMMY Administration Furosemide 20 mg 05/19/20 09:00 05/21/20 08:03 Furosemide 20 Mg Tab PO 20 mg DAILY KIMMY Administration Sodium Chloride 1,000 mls @ 50 mls/hr 05/16/20 15:00 05/22/20 01:27 Normal Saline 0.9% IV Not Given .Q20H [facility] Vancomycin HCl 1.25 gm/ Sodium 250 mls @ 166.667 mls/hr 05/19/20 03:00 05/22/20 03:55 Chloride IVPB 250 mls 0300,1500 KIMMY Administration Piperacillin Sod/Tazobactam 100 mls @ 200 mls/hr 05/19/20 20:00 05/22/20 01:25 Sod 3.375 gm/ Sodium Chloride IVPB 100 mls 0200,0800,1400,2000 KIMMY Administration Latanoprost 1 drop 05/17/20 21:00 05/21/20 23:18 Latanoprost 0.005% Ophth Soln 2.5 Ml Bottle EA EYE 1 drop HS KIMMY Administration Lisinopril 10 mg 05/19/20 09:00 05/21/20 08:02 Lisinopril 10 Mg Tab PO 10 mg DAILY KIMMY Administration Loratadine 10 mg 05/18/20 09:00 05/21/20 08:02 Loratadine 10 Mg Tab PO 10 mg DAILY KIMMY Administration Mometasone Furoate/Formoterol Fumar 2 puff 05/17/20 18:30 05/21/20 19:38 Mometasone 200 Mcg/Formoterol 5 Mcg 120 Puff Inhaler INH Not Given BID-RT KIMMY Nicotine 14 mg 05/16/20 15:00 05/21/20 14:45 Nicotine 14 Mg Patch TD 14 mg Q24HR KIMMY Administration Sodium Chloride 10 ml 05/17/20 21:00 05/21/20 23:19 Flush - Normal Saline 10 Ml Syringe IVF Not Given Q12HR KIMMY Sulfasalazine 500 mg 05/17/20 15:00 05/21/20 23:17 Sulfasalazine 500 Mg Tab PO 500 mg TID KIMMY Administration Terazosin HCl 5 mg 05/17/20 21:00 05/21/20 23:17 Terazosin Hcl 5 Mg Cap PO 5 mg HS KIMMY Administration Timolol Maleate 1 drop 05/18/20 09:00 05/21/20 08:03 Timolol 0.5% Ophth Soln 5 Ml Bottle EA EYE 1 drop DAILY KIMMY Administration Triamcinolone Acetonide 0 gm 05/19/20 21:00 05/21/20 23:19 Triamcinolone 0.1% Cream 15 Gm Tube TOP 1 applic BID KIMMY Administration - Exam General Appearance: NAD, awake alert ENT: normocephalic atraumatic, no oropharyngeal lesions, moist mucosa Neck: supple, symmetric, no JVD, no thyromegaly, no lymphadenopathy, no carotid bruit Heart: RRR, no murmur, no gallops, no rubs, normal peripheral pulses Respiratory: CTAB, no wheezes, no rales, no ronchi, normal chest expansion, no tachypnea, normal percussion Gastrointestinal: soft, non-tender, non-distended, normal bowel sounds, no palpable masses, no hepatomegaly, no splenomegaly, no bruit Extremities - other findings: Amputation area with clean post surgical dressing and wound vac in place. Skin - other findings: No evidence of cellulitis. Hosp A/P - Plan old records reviewed/req A/P: Patient being observed and treated for left lower extremity ulcer and possible gangrene with suspected PVD/PAD s/p angiogram & angioplasty now also s/p transmetatarsal amputation. # PAD with left foot gangrene: Angio confirms PVD/PAD now s/p angioplasty to left SFA. He is now s/p mid transmetatarsal amputation. Initial tissue and blood cultures growing MSSA sensitive to Doxycline. Repeat blood cultures are negative. IV ABX have been discontinued. Although he is s/p amputation and ideally we would stop ABX, I will keep him on a short course of Doxycycline given his poor healing reserve due to PAD/PVD. Continue with pain control. Surgery & vascular team follow; awaiting further recommendations regarding wound care and wound vac. # Bacteremia: MSSA sensitive to Doxycline. Non septic/toxic appearing. Leukocytosis stable without fever. S/p amputation with negative cultures and afebrile. Although he is s/p amputation and ideally we would stop ABX, I will keep him on a short course of Doxycycline given his poor healing reserve due to PAD/PVD. # COPD: No evidence of acute exacerbation. Continue to monitor under current regimen. # HTN: Continue with lisinopril. DISPOSITION: S/p transmetatarsal amputation on 05-21-20, transitioned to brief course of PO ABX per above. Case discussed with CM to start discharge dispisition; likely home with services.
[2020-05-22] MEDS ORDERED: Potassium Chloride 20 MEQ TAB PO SCH (08:30)
[2020-05-22] MEDS: Mometasone 200 MCG/Formoterol 5 MCG 120 PUFF INHALER INH SCH ×2 (08:54→21:36)
[2020-05-22] MEDS ORDERED: Clindamycin 150 MG CAP PO SCH (09:00)
[2020-05-22] MEDS: Clobetasol 0.05% Cream 15 gm Tube TOP SCH ×2 (09:24→22:45)
[2020-05-22] MEDS: Triamcinolone 0.1% Cream 15 GM TUBE TOP SCH ×2 (09:24→22:46)
[2020-05-22] MEDS: sulfaSALAzine 500 MG TAB PO SCH ×3 (09:25→22:45)
[2020-05-22] MEDS: Loratadine 10 MG TAB PO SCH (09:25)
[2020-05-22] MEDS: Timolol 0.5% Ophth Soln 5 ml Bottle EA EYE SCH (09:25)
[2020-05-22] MEDS: Enoxaparin Sodium 40 MG/0.4 ML SYRINGE SC SCH (09:25)
[2020-05-22] MEDS: Clopidogrel Bisulfate 75 MG TAB PO SCH (09:25)
[2020-05-22] MEDS: Aspirin 81 mg Enteric Coated Tablet PO SCH (09:25)
[2020-05-22] MEDS: Atorvastatin Calcium 40 MG TAB PO SCH (09:25)
[2020-05-22] MEDS: Folic Acid 1 MG TAB PO SCH (09:25)
[2020-05-22] MEDS: Furosemide 20 MG TAB PO SCH (09:25)
[2020-05-22] MEDS: Calcium Carbonate 600 MG + Vit D TAB PO SCH ×2 (09:25→22:45)
[2020-05-22] MEDS: Cyanocobalamin (Vitamin B-12) 1,000 MCG TAB PO SCH (09:25)
[2020-05-22] MEDS: Lisinopril 10 MG TAB PO SCH (09:31)
[2020-05-22] MEDS: Nicotine 14 MG PATCH TD SCH (15:23)
[2020-05-22 15:32] LABS: #Basophils 0.2 thou/uL (0.0-0.2); #Eosinphils 2.9 thou/uL (0.0-0.7); #Lymphocytes 3.2 thou/uL (1.20-3.40); #Monocytes 1.2 thou/uL (0.11-0.59); #Neutrophils 7.4 thou/uL (1.40-6.50); %Eosinophils 19.5 % (0.0-10.0); %Lymphocytes 21.4 % (21.0-51.0); %Monocytes 8.3 % (0.0-10.0); %Neutrophils 49.8 % (42.0-75.0); Hemoglobin 12.3 g/dL (14.0-18.0); Mean Corpuscular HGB CONC 32.3 g/dL (32.0-36.0); Mean Corpuscular Hemoglobin 28.9 pg (27.0-31.0); Mean Corpuscular Volume 89.5 fL (78.0-98.0); Platelet Count 715 thou/uL (130-400); RBC Distribution Width 13.9 % (11.5-14.5); Red Blood Cell (RBC) Count 4.26 mill/uL (4.70-6.10); White Blood Cell (WBC) Count 14.9 thou/uL (4.8-10.8)
[2020-05-22 16:10] LABS: Anion Gap 12 mmol/L (10-20); BUN (Urea Nitrogen) 10 mg/dL (8.4-25.7); Calc. Creatinine Clearance 71 mL/min (70-130); Calcium 7.7 mg/dL (7.8-10.44); Carbon Dioxide 24 mmol/L (23-31); Chloride 107 mmol/L (98-107); Glucose 103 mg/dL (80-115); Potassium 4.3 mmol/L (3.5-5.1); Sodium 139 mmol/L (136-145)
[2020-05-22] MEDS: Terazosin HCl 5 MG CAP PO SCH (22:45)
[2020-05-22] MEDS: Doxycycline 100 MG CAP PO SCH (22:45)
[2020-05-22] MEDS: Latanoprost 0.005% Ophth Soln 2.5 ml Bottle EA EYE SCH (22:46)
[2020-05-23] MEDS: PROVENTIL INHALER 6.7 G (200 INHALATIONS) INH SCH ×6 (02:13→22:08)
[2020-05-23] MEDS: HYDROcodone/Acetaminophen 5/325 mg Tablet PO PRN (05:55)
[2020-05-23] MEDS: Mometasone 200 MCG/Formoterol 5 MCG 120 PUFF INHALER INH SCH ×2 (07:04→19:04)
[2020-05-23] MEDS: Cyanocobalamin (Vitamin B-12) 1,000 MCG TAB PO SCH (09:38)
[2020-05-23] MEDS: Enoxaparin Sodium 40 MG/0.4 ML SYRINGE SC SCH (09:38)
[2020-05-23] MEDS: Calcium Carbonate 600 MG + Vit D TAB PO SCH ×2 (09:38→19:53)
[2020-05-23] MEDS: Folic Acid 1 MG TAB PO SCH (09:38)
[2020-05-23] MEDS: Aspirin 81 mg Enteric Coated Tablet PO SCH (09:38)
[2020-05-23] MEDS: Loratadine 10 MG TAB PO SCH (09:39)
[2020-05-23] MEDS: Atorvastatin Calcium 40 MG TAB PO SCH (09:39)
[2020-05-23] MEDS: sulfaSALAzine 500 MG TAB PO SCH ×3 (09:39→19:53)
[2020-05-23] MEDS: Furosemide 20 MG TAB PO SCH (09:40)
[2020-05-23] MEDS: Lisinopril 10 MG TAB PO SCH (09:40)
[2020-05-23] MEDS: Clopidogrel Bisulfate 75 MG TAB PO SCH (09:40)
[2020-05-23] MEDS: Timolol 0.5% Ophth Soln 5 ml Bottle EA EYE SCH (09:41)
[2020-05-23] MEDS: Triamcinolone 0.1% Cream 15 GM TUBE TOP SCH ×2 (09:43→19:54)
[2020-05-23] MEDS: Clobetasol 0.05% Cream 15 gm Tube TOP SCH ×2 (09:44→19:53)
[2020-05-23] MEDS: Doxycycline 100 MG CAP PO SCH ×2 (09:49→19:52)
--- NOTE | 2020-05-23 13:11 | PDOC.OP ---
Operative Note - Operative Note Operative Note: PROCEDURE: Left transmetatarsal amputation SURGEON: Lakshmi Clark M.D. DATE: 05/21/2020 PREOPERATIVE DIAGNOSIS: Gangrene of multiple toes of the left foot with psoriatic skin ulceration and possible superinfection POSTOPERATIVE DIAGNOSIS:Gangrene of multiple toes of the left foot with psoriatic skin ulceration and possible superinfection HISTORY: Patient with longstanding severe psoriasis with multiple ulcerations of the skin over his entire body, also with severe peripheral vascular disease with rest pain and gangrene of his left foot. He underwent angioplasty of his left SFA with improvement in the vascular supply to his foot but continues to have severe pain and also weeping from ulcerations near the gangrenous toes. The drainage from around his toes has been cultured and is the same as the bacteria in his bloodstream. Recommendation was made to proceed with transmetatarsal amputation for control of infection and improvement of pain. FINDINGS: Viable tissues at the transmetatarsal level without any evidence of abscess or infection. PROCEDURE IN DETAIL: After informed consent was obtained the patient was taken to the operating room he was placed in supine position and general anesthesia was administered. He was prepped and draped in standard sterile fashion and the skin was marked for transmetatarsal amputation with a long plantar flap. He had some epidermal skin loss over the plantar surface of his forefoot and 2 small a reas of eschar which were felt to be due to desiccation of the underlying dermis there is no evidence of infection at this level and the skin was felt to be viable with the possible exception of the 2 areas of eschar. Dissection was carried down to the toes at the metatarsal level. The periosteal elevator was used to clear the tissues around the metatarsal bones to an area a centimeter or two above the skin incision. Rib linda were used to transect all 5 toes at this level. The soft tissues were then divided and the forefoot was passed from the table. Some flexor tendons were pulled down into the incision, cut and allowed to retract into the deep tissues. The remaining soft tissue was healthy in appearance with good bleeding which was able to be controlled with electrocautery. The soft tissues were reapproximated at intervals with interrupted 2-0 Vicryl sutures including the deep dermis in the closure. The skin was then reapproximated at intervals using vertical mattress 3-0 nylon sutures. Given the concern for infection and the patient's severe vascular disease the decision was made to place a wound VAC for limb salvage. Wound care team was called to the room for placement of wound VAC to the wound. Once this was completed patient was taken to recovery in good condition. Estimate blood loss was minimal. There were no complications. Specimen is left forefoot
--- NOTE | 2020-05-23 14:10 | PDOC.HOSPP ---
- Subjective Encounter Date: 05/23/20 Subjective: Seen and examined at bedside. No new complains or overnight events. Remains afebrile, pain free, no complications from surgery. Awaiting outpatient wound care and possible wound vac coordination for safe discharge. - Objective Vital Signs & Weight: Vital Signs (12 hours) Temp Pulse Resp BP BP Pulse Ox 05/23/20 11:40 97.3 F L 90 20 165/84 H 96 05/23/20 09:41 100 137/79 05/23/20 09:40 137/79 05/23/20 08:00 98.1 F 100 05/23/20 07:13 98.1 F 100 20 137/79 91 L Weight Admit Weight 168 lb 9.6 oz Weight 169 lb 4 oz I&O: 05/22/20 05/23/20 05/24/20 06:59 06:59 06:59 Intake Total 1650 2140 360 Output Total 0 5 Balance 1650 2135 360 Result Diagrams: 05/22/20 15:20 05/22/20 15:20 Hospitalist ROS - Review of Systems Constitutional: denies: fever, chills, sweats, weakness, malaise, other Respiratory: denies: cough, dry, shortness of breath, hemoptysis, SOB with excertion, pleuritic pain, sputum, wheezing, other Musculoskeletal: denies: neck pain, shoulder pain, arm pain, back pain, hand pain, leg pain, foot pain, other - Medication Medications: Active Medications Generic Name Dose Route Start Last Admin Trade Name Freq PRN Reason Stop Dose Admin Hydrocodone Bitart/Acetaminophen 1 tab 05/16/20 14:53 05/23/20 05:55 Hydrocodone/Acetaminophen 5/325 Mg Tablet PO 1 tab Q4H PRN Administration Moderate Pain (4-6) Albuterol Sulfate 1 puff 05/17/20 10:30 05/23/20 10:36 Proventil Inhaler 6.7 G (200 Inhalations) INH 1 puff [id number] KIMMY Administration Aspirin 81 mg 05/18/20 09:00 05/23/20 09:38 Aspirin 81 Mg Enteric Coated Tablet PO 81 mg DAILY KIMMY Administration Atorvastatin Calcium 40 mg 05/18/20 09:00 05/23/20 09:39 Atorvastatin Calcium 40 Mg Tab PO 40 mg DAILY KIMMY Administration Calcium/Vitamin D 1 tab 05/17/20 21:00 05/23/20 09:38 Calcium Carbonate 600 Mg + Vit D Tab PO 1 tab BID KIMMY Administration Clobetasol Propionate 0 gm 05/17/20 21:00 05/23/20 09:44 Clobetasol 0.05% Cream 15 Gm Tube TOP 1 applic BID KIMMY Administration Clopidogrel Bisulfate 75 mg 05/20/20 09:00 05/23/20 09:40 Clopidogrel Bisulfate 75 Mg Tab PO 75 mg DAILY KIMMY Administration Cyanocobalamin 1,000 mcg 05/18/20 09:00 05/23/20 09:38 Cyanocobalamin (Vitamin B-12) 1,000 Mcg Tab PO 1,000 mcg DAILY KIMMY Administration Doxycycline Hyclate 100 mg 05/22/20 21:00 05/23/20 09:49 Doxycycline 100 Mg Cap PO 100 mg BID KIMMY Administration Enoxaparin Sodium 40 mg 05/17/20 09:00 05/23/20 09:38 Enoxaparin Sodium 40 Mg/0.4 Ml Syringe SC 40 mg 0900 KIMMY Administration Folic Acid 1 mg 05/18/20 09:00 05/23/20 09:38 Folic Acid 1 Mg Tab PO 1 mg DAILY KIMMY Administration Furosemide 20 mg 05/19/20 09:00 05/23/20 09:40 Furosemide 20 Mg Tab PO 20 mg DAILY KIMMY Administration Latanoprost 1 drop 05/17/20 21:00 05/22/20 22:46 Latanoprost 0.005% Ophth Soln 2.5 Ml Bottle EA EYE 1 drop HS KIMMY Administration Lisinopril 10 mg 05/19/20 09:00 05/23/20 09:40 Lisinopril 10 Mg Tab PO 10 mg DAILY KIMMY Administration Loratadine 10 mg 05/18/20 09:00 05/23/20 09:39 Loratadine 10 Mg Tab PO 10 mg DAILY KIMMY Administration Mometasone Furoate/Formoterol Fumar 2 puff 05/17/20 18:30 05/23/20 07:04 Mometasone 200 Mcg/Formoterol 5 Mcg 120 Puff Inhaler INH 2 puff BID-RT KIMMY Administration Nicotine 14 mg 05/16/20 15:00 05/22/20 15:23 Nicotine 14 Mg Patch TD 14 mg Q24HR KIMMY Administration Sodium Chloride 10 ml 05/17/20 21:00 05/23/20 09:42 Flush - Normal Saline 10 Ml Syringe IVF Not Given Q12HR KIMMY Sulfasalazine 500 mg 05/17/20 15:00 05/23/20 09:39 Sulfasalazine 500 Mg Tab PO 500 mg TID KIMMY Administration Terazosin HCl 5 mg 05/17/20 21:00 05/22/20 22:45 Terazosin Hcl 5 Mg Cap PO 5 mg HS KIMMY Administration Timolol Maleate 1 drop 05/18/20 09:00 05/23/20 09:41 Timolol 0.5% Ophth Soln 5 Ml Bottle EA EYE 1 drop DAILY KIMMY Administration Triamcinolone Acetonide 0 gm 05/19/20 21:00 05/23/20 09:43 Triamcinolone 0.1% Cream 15 Gm Tube TOP 1 applic BID KIMMY Administration - Exam General Appearance: NAD, awake alert Eye: PERRL, anicteric sclera Heart: RRR, no murmur, no gallops, no rubs, normal peripheral pulses Respiratory: CTAB, no wheezes, no rales, no ronchi, normal chest expansion, no tachypnea, normal percussion Gastrointestinal: soft, non-tender, non-distended, normal bowel sounds, no palpable masses, no hepatomegaly, no splenomegaly, no bruit Extremities - other findings: S/p left foot transmetatarsal amputation, no complains Hosp A/P - Plan A/P: Patient being observed and treated for left lower extremity ulcer and possible gangrene with PVD/PAD s/p angiogram & angioplasty now also s/p transmetatarsal amputation. # PAD with left foot gangrene: Angio confirms PVD/PAD now s/p angioplasty to left SFA. He is now s/p mid transmetatarsal amputation. Initial tissue and blood cultures growing MSSA sensitive to Doxycline. Repeat blood cultures are negative. IV ABX have been discontinued. Although he is s/p amputation and id eally we would stop ABX, I will keep him on a short course of Doxycycline given his poor healing reserve due to PAD/PVD. Continue with pain control. Surgery & vascular team follow; awaiting further recommendations regarding wound care and wound vac. # Bacteremia: MSSA sensitive to Doxycline. Non septic/toxic appearing. Leukocytosis stable without fever. S/p amputation with negative cultures and afebrile. Although he is s/p amputation and ideally we would stop ABX, I will keep him on a short course of Doxycycline given his poor healing reserve due to PAD/PVD. # COPD: No evidence of acute exacerbation. Continue to monitor under current regimen. # HTN: Continue with lisinopril. DISPOSITION: S/p transmetatarsal amputation on 05-21-20, transitioned to brief course of PO ABX per above. Case discussed with CM to start discharge dispisition; likely home with services.
[2020-05-23] MEDS: Nicotine 14 MG PATCH TD SCH (14:22)
[2020-05-23] MEDS: Terazosin HCl 5 MG CAP PO SCH (19:53)
[2020-05-23] MEDS: Latanoprost 0.005% Ophth Soln 2.5 ml Bottle EA EYE SCH (19:56)
--- NOTE | 2020-05-23 21:06 | PDOC.GSPN ---
Surgery Progress Note: Subj - Subjective Narrative: Patient seen with wound care today. His wound is clean and the tissues appear viable. The eschar on the plantar surface is unchanged. From my standpoint he can be discharged with VAC dressing changes and close follow-up with wound care or myself. I will plan to see him back in my clinic in a couple weeks for suture removal. Surgery Progress Note: Obj - Vital signs Vital signs: Vital Signs - Most Recent Temp Pulse Resp BP Pulse Ox 97.4 F L 104 H 20 157/82 H 97 05/23/20 19:12 05/23/20 19:12 05/23/20 19:12 05/23/20 19:12 05/23/20 19:12 Surgery Progress Note: Results - Labs Result Diagrams: 05/22/20 15:20 05/22/20 15:20
[2020-05-24] MEDS: PROVENTIL INHALER 6.7 G (200 INHALATIONS) INH SCH ×4 (02:16→15:27)
[2020-05-24] MEDS: Mometasone 200 MCG/Formoterol 5 MCG 120 PUFF INHALER INH SCH (07:04)
[2020-05-24] MEDS: Timolol 0.5% Ophth Soln 5 ml Bottle EA EYE SCH (09:00)
[2020-05-24] MEDS: Doxycycline 100 MG CAP PO SCH (09:00)
[2020-05-24] MEDS: Folic Acid 1 MG TAB PO SCH (09:02)
[2020-05-24] MEDS: sulfaSALAzine 500 MG TAB PO SCH ×2 (09:02→15:57)
[2020-05-24] MEDS: Furosemide 20 MG TAB PO SCH (09:03)
[2020-05-24] MEDS: Calcium Carbonate 600 MG + Vit D TAB PO SCH (09:03)
[2020-05-24] MEDS: Aspirin 81 mg Enteric Coated Tablet PO SCH (09:03)
[2020-05-24] MEDS: Lisinopril 10 MG TAB PO SCH (09:03)
[2020-05-24] MEDS: Loratadine 10 MG TAB PO SCH (09:03)
[2020-05-24] MEDS: Atorvastatin Calcium 40 MG TAB PO SCH (09:03)
[2020-05-24] MEDS: Cyanocobalamin (Vitamin B-12) 1,000 MCG TAB PO SCH (09:03)
[2020-05-24] MEDS: Clopidogrel Bisulfate 75 MG TAB PO SCH (09:03)
[2020-05-24] MEDS: Enoxaparin Sodium 40 MG/0.4 ML SYRINGE SC SCH (09:04)
[2020-05-24] MEDS: Clobetasol 0.05% Cream 15 gm Tube TOP SCH (09:04)
[2020-05-24] MEDS: Triamcinolone 0.1% Cream 15 GM TUBE TOP SCH (09:05)
--- NOTE | 2020-05-24 10:16 | PDOC.DS.DS ---
Provider - Provider Date of Admission: 05/16/20 16:27 Date of Discharge: 05/24/20 Admitting Provider: Zackery Goode MD Consultations: General Surgery Primary Care Physician: [facility] Course - Hospital Course Hospital Course: Patient with extensive PMH presents to ED for evaluation of left lower extremity pain of his toes and gangrenous changes. At presentation he did not have any signs of toxemia but did have some tachycardia. He was started on broad spectrum antibiotics for evidence of gangrene. Surgical and vascular services were consulted. Patient did undergo angiogram with evidence of peripheral vascular disease with short focal stenosis of the mid to distal SFA in the order of 95% (see vascular report). Patiet did undergo balloon angioplasty of this lesion. After vascular intervention patient underwent transmetatarsal amputation. His antibiotics were then transitioned to short course of PO Doxycycline given poor healing reserve due to PVD. He did grow MSSA in blood and tissue samples. Subsequent repeat blood cultures remained negative. Patient is currently without any evidence of systemic illness/sepsis. Wound vac in place. Cleared for discharge by surgery. He is medically stable to trans ition his care to the outpatient basis. He should continue ASA, Plavix, statin and finish short course of Doxycycline. Resuscitation Status: 05/17/20 09:39 Resuscitation Status Routine Resuscitation Status: DNAR: NO Resuscitation Discussed with: per patient - Labs Lab Results: 05/22/20 15:20 05/22/20 15:20 Abnormal Lab Results - Last 48 hrs 05/22/20 15:20: Calcium 7.7 L 05/22/20 15:20: WBC 14.9 H, RBC 4.26 L, Hgb 12.3 L, Hct 38.1 L, Plt Count 715 H, MPV 6.0 L, Eosinophils % 19.5 H, Neutrophils # 7.4 H, Monocytes # 1.2 H, Eosinophils # 2.9 H Microbiology - Entire Visit 05/17/20 18:26 Venous blood - Left Arm Blood Culture - Final NO GROWTH IN 5 DAYS 05/17/20 18:26 Venous blood - Left Hand Blood Culture - Final NO GROWTH IN 5 DAYS 05/16/20 11:32 Foot - Pending Bacterial Culture - Final Staphylococcus aureus Yeast species 05/16/20 11:17 Venous blood - Right Hand Blood Culture - Final Staphylococcus aureus 05/16/20 11:28 Venous blood - Left Arm Blood Culture - Final Staphylococcus aureus - Physical Exam Vitals: Vital Signs (12 hours) Temp Pulse Resp BP BP Pulse Ox 05/24/20 08:22 97 F L 92 20 169/80 H 97 05/24/20 04:00 98.3 F 96 20 155/81 H 98 05/23/20 23:37 98.1 F 96 20 149/79 H 98 Weight Admit Weight 168 lb 9.6 oz Weight 169 lb 4 oz Physical Exam: The patient was seen and examined on the day of discharge. Problem - Discharge Plan Assessment: A/P: Patient being observed and treated for left lower extremity ulcer and possible gangrene with PVD/PAD s/p angiogram & angioplasty now also s/p transmetatarsal amputation. # PAD with left foot gangrene: Angio confirms PVD/PAD now s/p angioplasty to left SFA. He is now s/p mid transmetatarsal amputation. Initial tissue and blood cultures growing MSSA sensitive to Doxycline. Transitioned off IV ABX. Repeat blood cultures are negative. Although he is s/p amputation and ideally we would stop ABX, I will keep him on a short course of Doxycycline given his poor healing reserve due to PAD/PVD. Continue with ASA, Plavix, Statin. Cleared for discharge by surgery. # Bacteremia: MSSA sensitive to Doxycline. Non septic/toxic appearing. Leukocytosis stable without fever. S/p amputation with negative cultures and afebrile. Although he is s/p amputation and ideally we would stop ABX, I will keep him on a short course of Doxycycline given his poor healing reserve due to PAD/PVD. # COPD: No evidence of acute exacerbation. Continue to monitor under current regimen. # HTN: Continue with lisinopril and low dose lasix. DISPOSITION: S/p transmetatarsal amputation on 05-21-20, transitioned to brief course of PO ABX per above. Medically stable for discharge. Plan - Discharge Medications Prescriptions: Furosemide [Lasix] 20 mg PO DAILY 30 Days #30 tab Clopidogrel Bisulfate [Plavix] 75 mg PO DAILY 30 Days #30 tab Doxycycline [Vibramycin] 100 mg PO BID 5 Days #10 cap Home Medications: Medication Instructions Recorded Confirmed Type Cyanocobalamin (Vitamin B-12) 1,000 mcg PO DAILY 07/30/13 05/16/20 History [Vitamin B-12] Folic Acid [Folvite] 1 mg PO DAILY 07/30/13 05/16/20 History Terazosin HCl [Hytrin] 5 mg PO HS 07/30/13 05/16/20 History Acetaminophen [Tylenol] 650 mg PO Q8HR PRN 05/16/20 05/16/20 History Adalimumab [Humira] 40 mg SQ Q14D 05/16/20 05/16/20 History Albuterol Sulfate [Proair 90 mcg INH Q4HR 05/16/20 05/16/20 History Digihaler] Aspirin [Aspirin EC] 81 mg PO DAILY 05/16/20 05/16/20 History Atorvastatin Calcium 40 mg PO DAILY 05/16/20 05/16/20 History Budesonide/Formoterol Fumarate 2 inh INH BID 05/16/20 05/16/20 History [Budesonide-Formoterol 160-4.5] Calcium Carbonate/Vitamin D3 1 each PO BID 05/16/20 05/16/20 History [Calcium 500-Vit D3 200 Tablet] Clobetasol Propionate [Clobetasol 1 applic TOP BID 05/16/20 05/16/20 History Propionate 0.05% Cream] Latanoprost/Pf [Latanoprost 0.005% 7.5 ml OP HS 05/16/20 05/16/20 History Eye Drop] Lisinopril 10 mg PO BID 05/16/20 05/16/20 History Loratadine [Claritin] 10 mg PO DAILY 05/16/20 05/16/20 History Sildenafil Citrate 100 mg PO SEEPHYS PRN 05/16/20 05/16/20 History Timolol Maleate [Timolol Maleate 1 drop EA EYE DAILY 05/16/20 05/16/20 History 0.5% Ophth Gel] Triamcinolone Acetonide 1 applic TOP BID 05/16/20 05/16/20 History [Triamcinolone Acetonide 0.1% Ointment] metFORMIN HCl [Metformin HCl] 750 mg PO DAILY 05/16/20 05/16/20 History sulfaSALAzine [Sulfasalazine] 500 mg PO TID 05/16/20 05/16/20 History Acetaminophen [Tylenol Regular 650 mg PO Q4H PRN tab 05/24/20 Rx Strength] Clopidogrel Bisulfate [Plavix] 75 mg PO DAILY 30 Days #30 tab 05/24/20 Rx Doxycycline [Vibramycin] 100 mg PO BID 5 Days #10 cap 05/24/20 Rx Furosemide [Lasix] 20 mg PO DAILY 30 Days #30 tab 05/24/20 Rx Sennosides/Docusate Sodium 2 tab PO BIDPRN PRN tab 05/24/20 Rx [Senokot S] Allergies: Penicillins Allergy (Verified 09/04/19 06:06) - Discharge Instructions Activity:: Activity as Tolerated Nourishment:: Heart Healthy Diet Therapies:: Wound Care - Follow up Plan Referrals: Lakshmi Clark MD [Active] - 10 Days [facility] [Primary Care Provider] - Disposition: HOME Quality - Care Measures CORE MEASURES:: N/A
[2020-05-24] MEDS: Nicotine 14 MG PATCH TD SCH (15:57)
[2020-05-24 18:09] VITALS: BP 172/80; TEMP 98.1
== END 2020-05-24 18:27 | disposition home health service (06) | DRG 240 ==
LOC: ERS 10:41 → 2NO 16:24 → T4-A 05-17 17:43
PROVIDERS: ADMIT Specialist; ATTEND Specialist
PROC: 047L3Z1 Dilation of Left Femoral Artery using Drug-Coated Balloon, Percutaneous Approach (ICD-10-PCS; 2020-05-19)
PROC: B44GZZZ Ultrasonography of Left Lower Extremity Arteries (ICD-10-PCS; 2020-05-19)
PROC: 0Y6N0Z9 Detachment at Left Foot, Partial 1st Ray, Open Approach (ICD-10-PCS; principal; 2020-05-23)
PROC: 0Y6N0ZB Detachment at Left Foot, Partial 2nd Ray, Open Approach (ICD-10-PCS; 2020-05-23)
PROC: 0Y6N0ZC Detachment at Left Foot, Partial 3rd Ray, Open Approach (ICD-10-PCS; 2020-05-23)
PROC: 0Y6N0ZD Detachment at Left Foot, Partial 4th Ray, Open Approach (ICD-10-PCS; 2020-05-23)
PROC: 0Y6N0ZF Detachment at Left Foot, Partial 5th Ray, Open Approach (ICD-10-PCS; 2020-05-23)
DX: E11.52 Type 2 diabetes mellitus with diabetic peripheral angiopathy with gangrene (principal); I96 Gangrene, not elsewhere classified; K50.90 Crohn's disease, unspecified, without complications; Z66 Do not resuscitate; Z20.828 Contact with and (suspected) exposure to other viral communicable diseases; I10 Essential (primary) hypertension; M19.90 Unspecified osteoarthritis, unspecified site; N40.0 Benign prostatic hyperplasia without lower urinary tract symptoms; F41.9 Anxiety disorder, unspecified; F43.10 Post-traumatic stress disorder, unspecified; F17.210 Nicotine dependence, cigarettes, uncomplicated; E78.5 Hyperlipidemia, unspecified; B95.61 Methicillin susceptible Staphylococcus aureus infection as the cause of diseases classified elsewhere; J44.9 Chronic obstructive pulmonary disease, unspecified; Z88.0 Allergy status to penicillin; Z79.82 Long term (current) use of aspirin; Z79.51 Long term (current) use of inhaled steroids; Z79.899 Other long term (current) drug therapy; L40.8 Other psoriasis; L08.9 Local infection of the skin and subcutaneous tissue, unspecified
CPT/HCPCS: 36415; 36416; 37224; 76942; 80048; 80053; 80202; 83605; 85025; 85652; 86140; 87040; 87070; 87077; 87149; 87186; 87205; 87635; 88307; 93005; 93923; 96365; 96366; 96367; 96368; 99152; C1725; J0360; J0692; J1644; J1650; J1885; J2250; J2405; J2543; J2704; J2720; J3010; J3370; J3490; J7030; J7050; Q9967; U0003

== ENCOUNTER 2020-08-16 11:21 | Inpatient (IN) | payer MEDICARE, OTHER ==
[2020-08-16] MEDS ORDERED: Senokot S 8.6-50 MG TAB PO PRN (14:56)
[2020-08-16] MEDS ORDERED: Acetaminophen 325 MG TAB PO PRN (14:56)
[2020-08-16] MEDS ORDERED: HumaLOG 300 UNITS/3 ML VIAL SC PRN ×2 (15:07)
[2020-08-16] MEDS ORDERED: Dextrose 5% in Water 1,000 ML IV PRN (15:07)
[2020-08-16] MEDS ORDERED: Dextrose 50% Abboject 50 ML SYRINGE SLOW IVP PRN (15:07)
[2020-08-16] MEDS ORDERED: HYDROcodone/Acetaminophen 7.5/325 mg Tablet PO PRN (15:10)
[2020-08-16] MEDS ORDERED: Potassium Chloride 20 MEQ TAB PO SCH (15:15)
[2020-08-16] MEDS ORDERED: Bacitracin 1 PK TOP PRN (16:15)
[2020-08-16] MEDS: NS 0.9% w/ 40 MEQ KCL 1,000 ML IV SCH ×3 (16:27→20:33)
[2020-08-16] MEDS: Mometasone 200 MCG/Formoterol 5 MCG 120 PUFF INHALER INH SCH (20:06)
[2020-08-16] MEDS: Lisinopril 20 MG TAB PO SCH (20:31)
[2020-08-16] MEDS: Terazosin HCl 1 MG CAP PO SCH (20:31)
[2020-08-16] MEDS: Famotidine 20 MG TAB PO SCH (20:31)
[2020-08-16] MEDS: Cefepime 1 GM in Sodium Chloride 0.9% 100 ML IVPB SCH (20:32)
[2020-08-16] MEDS: Clindamycin/D5W 900 MG in Premix Bag 1 BAG IVPB SCH (20:32)
[2020-08-17] MEDS: Clindamycin/D5W 900 MG in Premix Bag 1 BAG IVPB SCH ×3 (04:49→22:57)
[2020-08-17 05:40] LABS: #Eosinphils 1.8 thou/uL (0.0-0.7); #Lymphocytes 1.9 thou/uL (1.20-3.40); #Monocytes 0.7 thou/uL (0.11-0.59); #Neutrophils 5.8 thou/uL (1.40-6.50); %Basophils 0.4 % (0.0-1.0); %Eosinophils 17.2 % (0.0-10.0); %Lymphocytes 18.8 % (21.0-51.0); %Monocytes 7.1 % (0.0-10.0); %Neutrophils 56.6 % (42.0-75.0); Hemoglobin 8.7 g/dL (14.0-18.0); Mean Corpuscular HGB CONC 33.1 g/dL (32.0-36.0); Mean Corpuscular Hemoglobin 29.3 pg (27.0-31.0); Mean Corpuscular Volume 88.6 fL (78.0-98.0); Mean Platelet Volume 6.4 fL (7.4-10.4); Platelet Count 476 thou/uL (130-400); RBC Distribution Width 15.9 % (11.5-14.5); Red Blood Cell (RBC) Count 2.96 mill/uL (4.70-6.10); White Blood Cell (WBC) Count 10.2 thou/uL (4.8-10.8)
[2020-08-17 05:57] LABS: INR-International Normal Ratio 1.4; Prothrombin Time 17.1 sec (12.0-14.7)
[2020-08-17 05:58] LABS: PTT 46.8 sec (22.9-36.1)
[2020-08-17 06:06] LABS: Iron 34 ug/dL (65-175); Iron Binding Capacity, Total 100 mcg/dL (261-462)
[2020-08-17 06:07] LABS: Anion Gap 10 mmol/L (10-20); BUN (Urea Nitrogen) 5 mg/dL (8.4-25.7); Calc. Creatinine Clearance 77 mL/min (70-130); Calcium 7.2 mg/dL (7.8-10.44); Carbon Dioxide 23 mmol/L (23-31); Chloride 111 mmol/L (98-107); Glucose 65 mg/dL (80-115); Iron 45 ug/dL (65-175); Iron Binding Capacity, Total 104 mcg/dL (261-462); Sodium 141 mmol/L (136-145)
[2020-08-17] MEDS: Mometasone 200 MCG/Formoterol 5 MCG 120 PUFF INHALER INH SCH ×2 (06:38→21:18)
[2020-08-17] MEDS: Enoxaparin Sodium 30 MG/0.3 ML SYRINGE SC SCH (08:40)
[2020-08-17] MEDS: Aspirin 81 mg Enteric Coated Tablet PO SCH (08:40)
[2020-08-17] MEDS: Potassium Chloride 20 MEQ TAB PO SCH (08:40)
[2020-08-17] MEDS: Cefepime 1 GM in Sodium Chloride 0.9% 100 ML IVPB SCH ×2 (08:40→20:34)
[2020-08-17] MEDS: Lisinopril 20 MG TAB PO SCH ×2 (08:40→20:35)
[2020-08-17] MEDS: Atorvastatin Calcium 40 MG TAB PO SCH (08:41)
[2020-08-17] MEDS: Terazosin HCl 1 MG CAP PO SCH (20:34)
[2020-08-17] MEDS: Famotidine 20 MG TAB PO SCH (20:34)
[2020-08-18] MEDS: NS 0.9% w/ 40 MEQ KCL 1,000 ML IV SCH (03:41)
[2020-08-18 05:33] LABS: #Basophils 0.1 thou/uL (0.0-0.2); #Lymphocytes 1.8 thou/uL (1.20-3.40); #Monocytes 0.8 thou/uL (0.11-0.59); #Neutrophils 6.3 thou/uL (1.40-6.50); %Basophils 0.6 % (0.0-1.0); %Eosinophils 18.4 % (0.0-10.0); %Lymphocytes 16.2 % (21.0-51.0); %Monocytes 7.3 % (0.0-10.0); %Neutrophils 57.5 % (42.0-75.0); Mean Corpuscular HGB CONC 33.1 g/dL (32.0-36.0); Mean Corpuscular Hemoglobin 29.5 pg (27.0-31.0); Mean Platelet Volume 6.2 fL (7.4-10.4); Platelet Count 489 thou/uL (130-400); RBC Distribution Width 15.8 % (11.5-14.5); Red Blood Cell (RBC) Count 3.04 mill/uL (4.70-6.10)
[2020-08-18 05:55] LABS: Anion Gap 10 mmol/L (10-20); BUN (Urea Nitrogen) 6 mg/dL (8.4-25.7); Calc. Creatinine Clearance 112 mL/min (70-130); Calcium 7.4 mg/dL (7.8-10.44); Carbon Dioxide 22 mmol/L (23-31); Chloride 117 mmol/L (98-107); Glucose 69 mg/dL (80-115); Potassium 3.9 mmol/L (3.5-5.1); Sodium 145 mmol/L (136-145)
[2020-08-18] MEDS: Clindamycin/D5W 900 MG in Premix Bag 1 BAG IVPB SCH ×3 (06:00→21:43)
[2020-08-18] MEDS: Dextrose 5 %-0.45 % NaCl 1,000 ML IV SCH (06:43)
[2020-08-18] MEDS ORDERED: D5 1/2 NS 500 ML IV SCH (06:45)
[2020-08-18] MEDS: Mometasone 200 MCG/Formoterol 5 MCG 120 PUFF INHALER INH SCH ×2 (07:15→20:17)
[2020-08-18] MEDS: Lisinopril 20 MG TAB PO SCH ×2 (08:30→21:03)
[2020-08-18] MEDS: Atorvastatin Calcium 40 MG TAB PO SCH (08:30)
[2020-08-18] MEDS: Potassium Chloride 20 MEQ TAB PO SCH (08:30)
[2020-08-18] MEDS: Cefepime 1 GM in Sodium Chloride 0.9% 100 ML IVPB SCH ×2 (08:31→21:02)
[2020-08-18] MEDS: Aspirin 81 mg Enteric Coated Tablet PO SCH (08:41)
[2020-08-18] MEDS ORDERED: Lidocaine 1% (PF) 30 ML VIAL ONE (10:47)
[2020-08-18] MEDS ORDERED: Iopamidol 370 76% 50 ML VIAL FS ONE (11:46)
[2020-08-18] MEDS ORDERED: Sodium Chloride 0.9% 1,000 ML IV SCH (15:00)
[2020-08-18] MEDS: Enoxaparin Sodium 30 MG/0.3 ML SYRINGE SC SCH (17:38)
[2020-08-18] MEDS: Famotidine 20 MG TAB PO SCH (21:03)
[2020-08-18] MEDS: Terazosin HCl 5 MG CAP PO SCH (21:14)
[2020-08-18] MEDS: Terazosin HCl 1 MG CAP PO SCH (21:21)
[2020-08-19] MEDS: Dextrose 5 %-0.45 % NaCl 1,000 ML IV SCH (03:51)
[2020-08-19] MEDS ORDERED: CABG-Vancomycin 1 GM in Premix Bag 1 BAG IVPB SCH (06:15)
[2020-08-19] MEDS ORDERED: Heparin 5,000 UNITS/ML VIAL ONE (06:37)
[2020-08-19] MEDS ORDERED: Protamine Sulfate 50 MG/5 ML VIAL ONE (06:37)
[2020-08-19] MEDS ORDERED: Vancomycin 1 GM/200 ML BAG ONE (06:38)
[2020-08-19] MEDS ORDERED: Clindamycin/D5W 900 mg/50 ml Premix Bag ONE (06:38)
[2020-08-19] MEDS ORDERED: Albuterol Sulfate 2.5 mg/3 ml Neb NEB SCH (06:45)
[2020-08-19] MEDS ORDERED: Midazolam HCl 2 mg/2 ml Vial ONE (06:51)
[2020-08-19] MEDS ORDERED: Fentanyl 100 MCG/2 ML VIAL ONE (06:51)
[2020-08-19] MEDS: Mometasone 200 MCG/Formoterol 5 MCG 120 PUFF INHALER INH SCH ×2 (07:01→20:44)
[2020-08-19 07:27] LABS: Actual Bicarbonate (HCO3a) 25.3 mEq/L (22-28); Base Excess (BEa) 0.9 mEq/L (-2.0 to +3.0); CO2 Tension 39.4 mmHg (35.0-45.0); Carboxyhemoglobin (COHb) 0.3 gm% (0.0-3.0); Hemoglobin (Hb) 9.2 g/dL (14.0-18.0); Potassium - ABG Lab 4.05 mmol/L (3.70-5.30); pH, Arterial 7.43 (7.35-7.45)
[2020-08-19 07:28] LABS: O2 Tension (PaO2), arterial 55.7 mmHg (> 70.0)
[2020-08-19 07:29] LABS: Puncture Site Arterial Line
[2020-08-19] MEDS ORDERED: Furosemide 40 MG/4 ML VIAL SLOW IVP SCH (08:00)
[2020-08-19] MEDS: Potassium Chloride 20 MEQ TAB PO SCH (08:44)
[2020-08-19] MEDS: Lisinopril 20 MG TAB PO SCH ×2 (08:44→20:55)
[2020-08-19] MEDS: Clindamycin/D5W 900 MG in Premix Bag 1 BAG IVPB SCH ×3 (08:45→21:37)
[2020-08-19] MEDS: Aspirin 81 mg Enteric Coated Tablet PO SCH (08:45)
[2020-08-19] MEDS: Atorvastatin Calcium 40 MG TAB PO SCH (08:45)
[2020-08-19] MEDS: Enoxaparin Sodium 30 MG/0.3 ML SYRINGE SC SCH (08:45)
[2020-08-19] MEDS: Cefepime 1 GM in Sodium Chloride 0.9% 100 ML IVPB SCH ×2 (08:45→20:53)
[2020-08-19] MEDS: methylPREDNISolone Sod Succ 40 MG VIAL IVP SCH ×2 (11:33→17:40)
[2020-08-19 11:43] LABS: Troponin I 0.025 ng/mL (< 0.028)
[2020-08-19] MEDS: Furosemide 40 MG/4 ML VIAL SLOW IVP SCH (13:54)
[2020-08-19] MEDS: Famotidine 20 MG TAB PO SCH (20:54)
[2020-08-19] MEDS: Latanoprost 0.005% Ophth Soln 2.5 ml Bottle EA EYE SCH (20:54)
[2020-08-19] MEDS: Terazosin HCl 5 MG CAP PO SCH (20:55)
[2020-08-20] MEDS: methylPREDNISolone Sod Succ 40 MG VIAL IVP SCH ×4 (00:08→17:06)
[2020-08-20] MEDS: Furosemide 40 MG/4 ML VIAL SLOW IVP SCH ×2 (05:13→14:08)
[2020-08-20] MEDS: Clindamycin/D5W 900 MG in Premix Bag 1 BAG IVPB SCH (05:14)
[2020-08-20] MEDS: Mometasone 200 MCG/Formoterol 5 MCG 120 PUFF INHALER INH SCH ×2 (06:32→18:26)
[2020-08-20] MEDS: Potassium Chloride 20 MEQ TAB PO SCH (08:56)
[2020-08-20] MEDS: Aspirin 81 mg Enteric Coated Tablet PO SCH (08:56)
[2020-08-20] MEDS: Enoxaparin Sodium 30 MG/0.3 ML SYRINGE SC SCH (08:57)
[2020-08-20] MEDS: Atorvastatin Calcium 40 MG TAB PO SCH (08:57)
[2020-08-20] MEDS: Lisinopril 20 MG TAB PO SCH ×2 (08:57→21:09)
[2020-08-20] MEDS: Cefepime 1 GM in Sodium Chloride 0.9% 100 ML IVPB SCH ×2 (08:57→21:10)
[2020-08-20] MEDS: HYDROcodone/Acetaminophen 7.5/325 mg Tablet PO PRN ×2 (09:00→14:08)
[2020-08-20] MEDS: Timolol 0.5% Ophth Soln 5 ml Bottle EA EYE SCH (09:04)
[2020-08-20 09:41] LABS: #Basophils 0.1 thou/uL (0.0-0.2); #Lymphocytes 1.7 thou/uL (1.20-3.40); #Monocytes 0.3 thou/uL (0.11-0.59); #Neutrophils 6.7 thou/uL (1.40-6.50); %Basophils 0.9 % (0.0-1.0); %Eosinophils 0.1 % (0.0-10.0); %Lymphocytes 19.1 % (21.0-51.0); %Monocytes 3.8 % (0.0-10.0); %Neutrophils 76.1 % (42.0-75.0); Hemoglobin 9.4 g/dL (14.0-18.0); Mean Corpuscular HGB CONC 32.4 g/dL (32.0-36.0); Mean Corpuscular Volume 89.5 fL (78.0-98.0); Mean Platelet Volume 6.5 fL (7.4-10.4); Platelet Count 482 thou/uL (130-400); RBC Distribution Width 15.8 % (11.5-14.5); Red Blood Cell (RBC) Count 3.22 mill/uL (4.70-6.10); White Blood Cell (WBC) Count 8.9 thou/uL (4.8-10.8)
[2020-08-20 10:16] LABS: Anion Gap 14 mmol/L (10-20); BUN (Urea Nitrogen) 8 mg/dL (8.4-25.7); Calc. Creatinine Clearance 64 mL/min (70-130); Calcium 7.5 mg/dL (7.8-10.44); Carbon Dioxide 23 mmol/L (23-31); Chloride 111 mmol/L (98-107); Glucose 133 mg/dL (80-115); Potassium 5.3 mmol/L (3.5-5.1); Sodium 143 mmol/L (136-145)
[2020-08-20] MEDS: Clindamycin/D5W 600 MG in Premix Bag 1 BAG IVPB SCH ×2 (14:07→21:10)
[2020-08-20] MEDS: Famotidine 20 MG TAB PO SCH (21:09)
[2020-08-20] MEDS: Latanoprost 0.005% Ophth Soln 2.5 ml Bottle EA EYE SCH (21:09)
[2020-08-20] MEDS: Terazosin HCl 5 MG CAP PO SCH (21:10)
[2020-08-21] MEDS: methylPREDNISolone Sod Succ 40 MG VIAL IVP SCH ×3 (00:30→18:36)
[2020-08-21 05:07] LABS: #Lymphocytes 2.1 thou/uL (1.20-3.40); #Monocytes 0.5 thou/uL (0.11-0.59); #Neutrophils 7.4 thou/uL (1.40-6.50); %Basophils 0.4 % (0.0-1.0); %Eosinophils 0.1 % (0.0-10.0); %Lymphocytes 21.1 % (21.0-51.0); %Monocytes 4.7 % (0.0-10.0); %Neutrophils 73.7 % (42.0-75.0); Hemoglobin 8.3 g/dL (14.0-18.0); Mean Corpuscular HGB CONC 33.7 g/dL (32.0-36.0); Mean Corpuscular Volume 88.9 fL (78.0-98.0); Mean Platelet Volume 6.6 fL (7.4-10.4); Platelet Count 457 thou/uL (130-400); RBC Distribution Width 15.6 % (11.5-14.5); Red Blood Cell (RBC) Count 2.76 mill/uL (4.70-6.10); White Blood Cell (WBC) Count 10.1 thou/uL (4.8-10.8)
[2020-08-21 05:24] LABS: Anion Gap 10 mmol/L (10-20); BUN (Urea Nitrogen) 10 mg/dL (8.4-25.7); Calc. Creatinine Clearance 78 mL/min (70-130); Calcium 7.4 mg/dL (7.8-10.44); Carbon Dioxide 27 mmol/L (23-31); Chloride 107 mmol/L (98-107); Glucose 86 mg/dL (80-115); Potassium 4.7 mmol/L (3.5-5.1); Sodium 139 mmol/L (136-145)
[2020-08-21] MEDS: Clindamycin/D5W 600 MG in Premix Bag 1 BAG IVPB SCH ×3 (05:40→22:35)
[2020-08-21] MEDS: Furosemide 40 MG/4 ML VIAL SLOW IVP SCH ×2 (05:40→15:19)
[2020-08-21] MEDS ORDERED: Midazolam HCl 2 mg/2 ml Vial ONE (06:32)
[2020-08-21] MEDS ORDERED: Fentanyl 100 MCG/2 ML VIAL ONE (06:32)
[2020-08-21] MEDS ORDERED: Heparin 5,000 UNITS/ML VIAL ONE (06:35)
[2020-08-21] MEDS ORDERED: Protamine Sulfate 50 MG/5 ML VIAL ONE (06:35)
[2020-08-21] MEDS ORDERED: Vancomycin 1 GM/200 ML BAG ONE (06:50)
[2020-08-21] MEDS: Mometasone 200 MCG/Formoterol 5 MCG 120 PUFF INHALER INH SCH ×2 (07:23→19:34)
[2020-08-21] MEDS ORDERED: Ketorolac Tromethamine 30 MG/ML VIAL ONE (07:29)
[2020-08-21] MEDS ORDERED: Ondansetron PF 4 MG/2 ML Vial ONE (07:29)
[2020-08-21] MEDS ORDERED: Dexamethasone 20 MG/5 ML VIAL ONE (07:29)
[2020-08-21] MEDS ORDERED: Rocuronium Bromide 10 MG/ML (10ML VIAL) ONE (07:29)
[2020-08-21] MEDS ORDERED: PHENYLEPHRINE-NS 100 MCG/ML 10 ML SYRINGE ONE (07:29)
[2020-08-21] MEDS ORDERED: Lidocaine 1% PF 5 ML VIAL ONE (07:29)
[2020-08-21] MEDS ORDERED: PROPOFOL 200 MG/20 ML VIAL ONE (07:29)
[2020-08-21] MEDS ORDERED: Heparin 10,000 UNITS/ 10 ML VIAL ONE (09:34)
[2020-08-21] MEDS ORDERED: Acetaminophen 325 MG TAB PO PRN ×2 (10:30)
[2020-08-21] MEDS ORDERED: Aspirin Chewable 81 MG TAB PO SCH (10:30)
[2020-08-21] MEDS ORDERED: HYDROcodone/Acetaminophen 5/325 mg Tablet PO PRN ×3 (10:30)
[2020-08-21] MEDS ORDERED: Ondansetron PF 4 MG/2 ML Vial IVP PRN (10:30)
[2020-08-21] MEDS ORDERED: SUGAMMADEX SODIUM 200 MG/2 ML VIAL ONE (10:47)
[2020-08-21] MEDS ORDERED: Ondansetron HCl/PF 4 MG/2 ML Vial IVP PRN (11:14)
[2020-08-21 11:38] LABS: #Basophils 0.1 thou/uL (0.0-0.2); #Lymphocytes 1.7 thou/uL (1.20-3.40); #Monocytes 0.6 thou/uL (0.11-0.59); #Neutrophils 6.3 thou/uL (1.40-6.50); %Basophils 1.2 % (0.0-1.0); %Eosinophils 0.3 % (0.0-10.0); %Lymphocytes 19.4 % (21.0-51.0); %Monocytes 6.6 % (0.0-10.0); %Neutrophils 72.6 % (42.0-75.0); Hemoglobin 8.2 g/dL (14.0-18.0); Mean Corpuscular HGB CONC 32.7 g/dL (32.0-36.0); Mean Corpuscular Volume 88.7 fL (78.0-98.0); Mean Platelet Volume 6.3 fL (7.4-10.4); Platelet Count 441 thou/uL (130-400); RBC Distribution Width 15.7 % (11.5-14.5); Red Blood Cell (RBC) Count 2.82 mill/uL (4.70-6.10); White Blood Cell (WBC) Count 8.7 thou/uL (4.8-10.8)
[2020-08-21] MEDS: Sodium Chloride 0.9% 1,000 ML IV SCH (15:15)
[2020-08-21] MEDS ORDERED: Furosemide 40 MG/4 ML VIAL ONE (15:18)
[2020-08-21] MEDS: Timolol 0.5% Ophth Soln 5 ml Bottle EA EYE SCH (15:25)
[2020-08-21] MEDS: Lisinopril 20 MG TAB PO SCH ×2 (15:26→20:31)
[2020-08-21] MEDS: Atorvastatin Calcium 40 MG TAB PO SCH (15:26)
[2020-08-21] MEDS ORDERED: Clindamycin/D5W 600 mg/50 ml Premix Bag ONE (15:34)
[2020-08-21] MEDS: Potassium Chloride 20 MEQ TAB PO SCH (15:40)
[2020-08-21] MEDS: Enoxaparin Sodium 30 MG/0.3 ML SYRINGE SC SCH (15:40)
[2020-08-21] MEDS: Cefepime 1 GM in Sodium Chloride 0.9% 100 ML IVPB SCH ×2 (15:40→20:32)
[2020-08-21] MEDS: Aspirin 81 mg Enteric Coated Tablet PO SCH (18:35)
[2020-08-21] MEDS: Terazosin HCl 5 MG CAP PO SCH (20:32)
[2020-08-21] MEDS: Famotidine 20 MG TAB PO SCH (20:32)
[2020-08-21] MEDS ORDERED: methylPREDNISolone Sod Succ 40 MG VIAL IVP SCH (21:00)
[2020-08-21] MEDS: Latanoprost 0.005% Ophth Soln 2.5 ml Bottle EA EYE SCH (21:09)
[2020-08-22 04:34] LABS: #Lymphocytes 2.2 thou/uL (1.20-3.40); #Monocytes 0.5 thou/uL (0.11-0.59); #Neutrophils 7.1 thou/uL (1.40-6.50); %Basophils 0.3 % (0.0-1.0); %Eosinophils 0.3 % (0.0-10.0); %Lymphocytes 22.1 % (21.0-51.0); %Monocytes 4.9 % (0.0-10.0); %Neutrophils 72.4 % (42.0-75.0); Hemoglobin 8.4 g/dL (14.0-18.0); Mean Corpuscular HGB CONC 33.4 g/dL (32.0-36.0); Mean Corpuscular Hemoglobin 29.5 pg (27.0-31.0); Mean Corpuscular Volume 88.3 fL (78.0-98.0); Mean Platelet Volume 6.8 fL (7.4-10.4); Platelet Count 451 thou/uL (130-400); RBC Distribution Width 15.4 % (11.5-14.5); Red Blood Cell (RBC) Count 2.84 mill/uL (4.70-6.10); White Blood Cell (WBC) Count 9.8 thou/uL (4.8-10.8)
[2020-08-22 04:55] LABS: Anion Gap 10 mmol/L (10-20); BUN (Urea Nitrogen) 12 mg/dL (8.4-25.7); Calc. Creatinine Clearance 78 mL/min (70-130); Carbon Dioxide 28 mmol/L (23-31); Chloride 106 mmol/L (98-107); Glucose 90 mg/dL (80-115); Potassium 4.4 mmol/L (3.5-5.1); Sodium 140 mmol/L (136-145)
[2020-08-22] MEDS: Clindamycin/D5W 600 MG in Premix Bag 1 BAG IVPB SCH ×3 (06:14→21:48)
[2020-08-22] MEDS: Furosemide 40 MG/4 ML VIAL SLOW IVP SCH (06:14)
[2020-08-22] MEDS: Mometasone 200 MCG/Formoterol 5 MCG 120 PUFF INHALER INH SCH ×2 (06:38→19:04)
[2020-08-22] MEDS ORDERED: Furosemide 40 MG TAB PO SCH (09:00)
[2020-08-22] MEDS: Lisinopril 20 MG TAB PO SCH ×2 (10:02→21:49)
[2020-08-22] MEDS: Potassium Chloride 20 MEQ TAB PO SCH (10:02)
[2020-08-22] MEDS: Aspirin Chewable 81 MG TAB PO SCH (10:03)
[2020-08-22] MEDS: Atorvastatin Calcium 40 MG TAB PO SCH (10:03)
[2020-08-22] MEDS: Enoxaparin Sodium 30 MG/0.3 ML SYRINGE SC SCH (10:03)
[2020-08-22] MEDS: HYDROcodone/Acetaminophen 5/325 mg Tablet PO PRN (10:10)
[2020-08-22 10:44] VITALS: BMI 21.9
[2020-08-22] MEDS: Sodium Chloride 0.9% 1,000 ML IV SCH (11:26)
[2020-08-22] MEDS: Timolol 0.5% Ophth Soln 5 ml Bottle EA EYE SCH (11:26)
[2020-08-22] MEDS: Famotidine 20 MG TAB PO SCH (21:47)
[2020-08-22] MEDS: Terazosin HCl 5 MG CAP PO SCH (21:48)
[2020-08-22] MEDS: Latanoprost 0.005% Ophth Soln 2.5 ml Bottle EA EYE SCH (21:51)
[2020-08-23] MEDS: Clindamycin/D5W 600 MG in Premix Bag 1 BAG IVPB SCH ×3 (05:02→21:09)
[2020-08-23] MEDS: Mometasone 200 MCG/Formoterol 5 MCG 120 PUFF INHALER INH SCH ×2 (06:46→19:10)
[2020-08-23 07:22] LABS: #Basophils 0.1 thou/uL (0.0-0.2); #Eosinphils 1.7 thou/uL (0.0-0.7); #Lymphocytes 2.5 thou/uL (1.20-3.40); #Monocytes 0.8 thou/uL (0.11-0.59); #Neutrophils 5.3 thou/uL (1.40-6.50); %Basophils 0.7 % (0.0-1.0); %Eosinophils 16.7 % (0.0-10.0); %Lymphocytes 23.8 % (21.0-51.0); %Neutrophils 50.8 % (42.0-75.0); Mean Corpuscular HGB CONC 32.7 g/dL (32.0-36.0); Mean Corpuscular Hemoglobin 29.3 pg (27.0-31.0); Mean Corpuscular Volume 89.4 fL (78.0-98.0); Mean Platelet Volume 6.3 fL (7.4-10.4); Platelet Count 469 thou/uL (130-400); RBC Distribution Width 15.5 % (11.5-14.5); Red Blood Cell (RBC) Count 3.08 mill/uL (4.70-6.10); White Blood Cell (WBC) Count 10.4 thou/uL (4.8-10.8)
[2020-08-23 07:45] LABS: Anion Gap 11 mmol/L (10-20); BUN (Urea Nitrogen) 8 mg/dL (8.4-25.7); Calc. Creatinine Clearance 70 mL/min (70-130); Calcium 7.2 mg/dL (7.8-10.44); Carbon Dioxide 28 mmol/L (23-31); Chloride 102 mmol/L (98-107); Glucose 94 mg/dL (80-115); Potassium 4.3 mmol/L (3.5-5.1); Sodium 137 mmol/L (136-145)
[2020-08-23] MEDS: Atorvastatin Calcium 40 MG TAB PO SCH (08:03)
[2020-08-23] MEDS: Enoxaparin Sodium 30 MG/0.3 ML SYRINGE SC SCH (08:03)
[2020-08-23] MEDS: Aspirin Chewable 81 MG TAB PO SCH (08:03)
[2020-08-23] MEDS: Lisinopril 20 MG TAB PO SCH ×2 (08:03→21:08)
[2020-08-23] MEDS: Potassium Chloride 20 MEQ TAB PO SCH (08:03)
[2020-08-23] MEDS: predniSONE 20 MG TAB PO SCH (08:03)
[2020-08-23] MEDS: Furosemide 40 MG TAB PO SCH (08:03)
[2020-08-23] MEDS ORDERED: Folic Acid 1 MG TAB PO SCH (09:30)
[2020-08-23] MEDS ORDERED: Cyanocobalamin (Vitamin B-12) 1,000 MCG TAB PO SCH (09:30)
[2020-08-23] MEDS: Timolol 0.5% Ophth Soln 5 ml Bottle EA EYE SCH (09:33)
[2020-08-23] MEDS: Calcium Carbonate 600 MG + Vit D TAB PO SCH (21:08)
[2020-08-23] MEDS: Terazosin HCl 5 MG CAP PO SCH (21:09)
[2020-08-23] MEDS: Famotidine 20 MG TAB PO SCH (21:09)
[2020-08-23] MEDS: Latanoprost 0.005% Ophth Soln 2.5 ml Bottle EA EYE SCH (21:10)
[2020-08-24] MEDS: Clindamycin/D5W 600 MG in Premix Bag 1 BAG IVPB SCH ×3 (05:00→21:00)
[2020-08-24] MEDS ORDERED: Activase 2 MG VIAL CATH SCH (06:00)
[2020-08-24] MEDS ORDERED: Sterile Water 10 ML VIAL IVP SCH (06:00)
[2020-08-24] MEDS: Mometasone 200 MCG/Formoterol 5 MCG 120 PUFF INHALER INH SCH ×2 (07:03→19:02)
[2020-08-24] MEDS: Potassium Chloride 20 MEQ TAB PO SCH (08:17)
[2020-08-24] MEDS: Enoxaparin Sodium 30 MG/0.3 ML SYRINGE SC SCH (08:17)
[2020-08-24] MEDS: Folic Acid 1 MG TAB PO SCH (08:17)
[2020-08-24] MEDS: Calcium Carbonate 600 MG + Vit D TAB PO SCH ×2 (08:17→21:00)
[2020-08-24] MEDS: Cyanocobalamin (Vitamin B-12) 1,000 MCG TAB PO SCH (08:17)
[2020-08-24] MEDS: predniSONE 20 MG TAB PO SCH (08:18)
[2020-08-24] MEDS: Aspirin Chewable 81 MG TAB PO SCH (08:18)
[2020-08-24] MEDS: Atorvastatin Calcium 40 MG TAB PO SCH (08:18)
[2020-08-24] MEDS: HYDROcodone/Acetaminophen 5/325 mg Tablet PO PRN ×2 (08:27→13:03)
[2020-08-24] MEDS: Timolol 0.5% Ophth Soln 5 ml Bottle EA EYE SCH (08:28)
[2020-08-24] MEDS: Furosemide 40 MG TAB PO SCH (10:38)
[2020-08-24] MEDS: Lisinopril 20 MG TAB PO SCH (10:39)
[2020-08-24] MEDS: Latanoprost 0.005% Ophth Soln 2.5 ml Bottle EA EYE SCH (21:00)
[2020-08-24] MEDS: Famotidine 20 MG TAB PO SCH (21:00)
[2020-08-24] MEDS: Terazosin HCl 5 MG CAP PO SCH (21:00)
[2020-08-25] MEDS: Mometasone 200 MCG/Formoterol 5 MCG 120 PUFF INHALER INH SCH (07:21)
[2020-08-25] MEDS: Cyanocobalamin (Vitamin B-12) 1,000 MCG TAB PO SCH (08:40)
[2020-08-25] MEDS: Enoxaparin Sodium 30 MG/0.3 ML SYRINGE SC SCH (08:40)
[2020-08-25] MEDS: Atorvastatin Calcium 40 MG TAB PO SCH (08:40)
[2020-08-25] MEDS: Calcium Carbonate 600 MG + Vit D TAB PO SCH (08:40)
[2020-08-25] MEDS: Aspirin Chewable 81 MG TAB PO SCH (08:40)
[2020-08-25] MEDS: Folic Acid 1 MG TAB PO SCH (08:40)
[2020-08-25] MEDS: predniSONE 20 MG TAB PO SCH (08:40)
[2020-08-25] MEDS: Timolol 0.5% Ophth Soln 5 ml Bottle EA EYE SCH (08:42)
[2020-08-25] MEDS ORDERED: Lisinopril 5 MG TAB PO SCH (09:00)
[2020-08-25] MEDS ORDERED: Furosemide 20 MG TAB PO SCH (09:00)
[2020-08-25 09:56] VITALS: TEMP 97.9
[2020-08-25] MEDS: Potassium Chloride 20 MEQ TAB PO SCH (11:36)
[2020-08-25] MEDS ORDERED: Potassium Chloride 20 MEQ TAB PO SCH (12:00)
[2020-08-25 17:24] VITALS: BP 163/70
[2020-08-25] MEDS ORDERED: Famotidine 20 MG TAB PO SCH (21:00)
== END 2020-08-25 15:22 | disposition home health service (06) | DRG 853 ==
LOC: SURG A 14:48 → CCU 08-21 17:32 → 2NO 08-22 10:32
PROVIDERS: ADMIT Internal Medicine; ATTEND Family Medicine
PROC: B41D1ZZ Fluoroscopy of Aorta and Bilateral Lower Extremity Arteries using Low Osmolar Contrast (ICD-10-PCS; 2020-08-16)
PROC: 041K09L Bypass Right Femoral Artery to Popliteal Artery with Autologous Venous Tissue, Open Approach (ICD-10-PCS; principal; 2020-08-21)
PROC: 06BP0ZZ Excision of Right Saphenous Vein, Open Approach (ICD-10-PCS; 2020-08-21)
PROC: 07BH0ZX Excision of Right Inguinal Lymphatic, Open Approach, Diagnostic (ICD-10-PCS; 2020-08-21)
DX: A41.9 Sepsis, unspecified organism (principal); I50.23 Acute on chronic systolic (congestive) heart failure; J18.9 Pneumonia, unspecified organism; J96.01 Acute respiratory failure with hypoxia; J81.0 Acute pulmonary edema; J44.0 Chronic obstructive pulmonary disease with (acute) lower respiratory infection; J44.1 Chronic obstructive pulmonary disease with (acute) exacerbation; L03.115 Cellulitis of right lower limb; E87.2 Acidosis; K50.919 Crohn's disease, unspecified, with unspecified complications; E11.51 Type 2 diabetes mellitus with diabetic peripheral angiopathy without gangrene; Z20.822 Contact with and (suspected) exposure to COVID-19; I11.0 Hypertensive heart disease with heart failure; E78.5 Hyperlipidemia, unspecified; N40.0 Benign prostatic hyperplasia without lower urinary tract symptoms; I70.201 Unspecified atherosclerosis of native arteries of extremities, right leg; R23.4 Changes in skin texture; E87.6 Hypokalemia; F17.210 Nicotine dependence, cigarettes, uncomplicated; M19.90 Unspecified osteoarthritis, unspecified site; E11.628 Type 2 diabetes mellitus with other skin complications; L30.9 Dermatitis, unspecified; D64.9 Anemia, unspecified; Z88.0 Allergy status to penicillin; Z79.01 Long term (current) use of anticoagulants; Z79.82 Long term (current) use of aspirin; Z79.899 Other long term (current) drug therapy; Z79.84 Long term (current) use of oral hypoglycemic drugs; Z79.51 Long term (current) use of inhaled steroids
CPT/HCPCS: 36246; 36415; 36416; 71045; 75716; 76942; 80048; 82274; 82805; 83540; 83550; 83880; 84484; 85025; 85610; 85730; 86850; 86900; 86901; 88184; 88307; 88341; 88342; 88365; 93306; 94640; J0692; J1100; J1642; J1644; J1650; J1815; J1885; J1940; J2001; J2250; J2405; J2704; J2720; J2920; J3010; J3370; J3480; J3490; J7512; J7611; J7620; Q9967